=== PATIENT | male | born 1940 | race Caucasian/White ===

== ENCOUNTER → 2018-03-26 08:40 | Outpatient (REF) | payer MEDICARE, SELFPAY ==
[2018-03-26 13:07] LABS: Abs Immature Grans 0.02 k/cumm (0.0-0.09); Absolute Basophil Count 0.05 k/cumm (0.0-0.2); Absolute Eosinophil Count 0.69 k/cumm (0.0-0.7); Absolute Lymphocyte Count 1.15 k/cumm (1.2-3.4); Absolute Monocyte Count 0.37 k/cumm (0.11-0.7); Absolute Neutrophil Count 4.11 k/cumm (1.2-6.7); Basophils % 0.8; Eosinophils % 10.8; HCT 41.1 % (40.0-50.0); HGB 13.5 g/dL (13.5-17.5); Immature Grans % 0.3; Mean Corp. HGB Concentration 32.8 g/dL (32.0-36.0); Mean Corpuscular Hemoglobin 28.9 pg (27.0-33.0); Mean Platelet Volume 11.3 fL (8.0-11.0); Monocytes % 5.8; Neutrophils % 64.3; Platelet Count 224 x1000/uL (130-400); RBC 4.67 m/cumm (4.50-6.00); RBC Distribution Width 14.6 % (11.8-14.1); White Blood Cell Count 6.39 k/cumm (4.4-10.8)
[2018-03-26 13:16] LABS: Anion Gap 9.9 mmol/L (3-11); BUN 21 mg/dL (7-18); CO2 26.1 mmol/L (21.0-32.0); CREATININE 1.77 mg/dL (0.70-1.30); Calcium 9.7 mg/dL (8.5-10.1); Chloride 103 mmol/L (98-107); Estimated GFR 37.49 (mL/min/1.73m2); Glucose 87 mg/dL (70-100); Potassium 4.3 mmol/L (3.5-5.1); Sodium 139 mmol/L (136-145)
== END ==
LOC: NCHCN 08:40
PROVIDERS: PCP Nurse Practitioner; Visit Provider Nurse Practitioner
DX: C66.1 Malignant neoplasm of right ureter (principal)
CPT/HCPCS: 80048; 85025

== ENCOUNTER 2018-06-09 09:44 | Outpatient (REF) | payer MEDICARE, SELFPAY ==
[2018-06-09 12:29] LABS: HCT 42.4 % (40.0-50.0); HGB 13.8 g/dL (13.5-17.5); Mean Corp. HGB Concentration 32.5 g/dL (32.0-36.0); Mean Corpuscular Hemoglobin 28.8 pg (27.0-33.0); Mean Corpuscular Volume 88.5 fL (80-95); Mean Platelet Volume 10.9 fL (8.0-11.0); Neutrophils % 68.1; Platelet Count 245 x1000/uL (130-400); RBC 4.79 m/cumm (4.50-6.00); RBC Distribution Width 13.5 % (11.8-14.1); White Blood Cell Count 5.15 k/cumm (4.4-10.8)
[2018-06-09 12:30] LABS: Abs Immature Grans 0.01 k/cumm (0.0-0.09); Absolute Basophil Count 0.05 k/cumm (0.0-0.2); Absolute Eosinophil Count 0.33 k/cumm (0.0-0.7); Absolute Lymphocyte Count 0.91 k/cumm (1.2-3.4); Absolute Monocyte Count 0.34 k/cumm (0.11-0.7); Absolute Neutrophil Count 3.51 k/cumm (1.2-6.7); Eosinophils % 6.4; Immature Grans % 0.2; Lymphocytes % 17.7; Monocytes % 6.6
[2018-06-09 13:00] LABS: ALT 21 U/L (12-78); AST 27 U/L (15-37); Albumin 3.8 g/dL (3.4-5.0); Alkaline Phosphatase 96 U/L (46-116); BUN 21 mg/dL (7-18); Bilirubin, Total 0.6 mg/dL (0.2-1.0); CREATININE 1.75 mg/dL (0.70-1.30); Calcium 9.8 mg/dL (8.5-10.1); Chloride 103 mmol/L (98-107); Estimated GFR 37.98 (mL/min/1.73m2); Glucose 88 mg/dL (70-100); Potassium 4.6 mmol/L (3.5-5.1); Sodium 138 mmol/L (136-145); Total Protein 6.9 g/dL (6.4-8.2)
== END 2018-06-09 10:04 ==
LOC: NCHCN 09:44
PROVIDERS: PCP Nurse Practitioner; Visit Provider Nurse Practitioner
DX: N28.9 Disorder of kidney and ureter, unspecified (principal)
CPT/HCPCS: 80053; 85025

== ENCOUNTER → 2018-07-14 09:21 | Outpatient (BNVA) | payer MEDICARE, SELFPAY | PROVIDERS: PCP Nurse Practitioner; Referring Provider Nurse Practitioner; Visit Provider Surgery | DX: R10.31 Right lower quadrant pain (principal); I10 Essential (primary) hypertension | CPT/HCPCS: 99213 ==

== ENCOUNTER → 2018-07-21 13:40 | Outpatient (BNVA) | payer MEDICARE, SELFPAY | PROVIDERS: PCP Nurse Practitioner; Visit Provider Psychiatry & Neurology Neurology | DX: F44.4 Conversion disorder with motor symptom or deficit (principal); R29.898 Other symptoms and signs involving the musculoskeletal system; I10 Essential (primary) hypertension | CPT/HCPCS: 99205; 99215 ==

== ENCOUNTER 2018-07-25 00:31 | Outpatient (CLI) | payer MEDICARE, SELFPAY ==
--- NOTE | 2018-07-25 07:48 | DI.MRI_ITS ---
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 The patient appears to be status post right nephrectomy. Cysts are noted on the left kidney. The aorta is normal in diameter. There is mild disc bulging and small endplate osteophytes at L 1-2. There is no neural foraminal narrowing or central canal stenosis. At L 2-3, there is moderate loss of disc height and mild concentric bulging. There is left neural foraminal narrowing. There are mild facet degenerative changes. At L 3-4, there is marked loss disc height and circumferential disc osteophytes. There are mild facet degenerative changes. The combination of the degenerative changes causes moderate to severe bilateral neural foraminal narrowing and slight central canal stenosis. At L 4- 5, there are broad based disc osteophytes and moderate loss of disc height. There are facet degenerative changes which combine with the disc osteophytes to cause severe bilateral neural foraminal narrowing and mild central canal stenosis. At L 5-S 1, there is severe loss of disc height and small circumferential osteophytes. There are mild to moderate facet degenerative changes. There is severe bilateral neural foraminal narrowing. Schmorl's nodes are seen at multiple levels. There are degenerative signal changes in the marrow. IMPRESSION: Multi level degenerative disc changes and facet degenerative changes combining to cause neural foraminal narrowing from L 3-4 through L 5-S 1. There is mild central canal stenosis at L 3-4 and L 4-5.
== END 2018-07-25 00:51 ==
PROVIDERS: PCP Nurse Practitioner; Visit Provider Psychiatry & Neurology Neurology
DX: F44.4 Conversion disorder with motor symptom or deficit (principal); R27.8 Other lack of coordination; M51.37 Other intervertebral disc degeneration, lumbosacral region; M48.07 Spinal stenosis, lumbosacral region
CPT/HCPCS: 72148

== ENCOUNTER → 2018-08-26 13:48 | Outpatient (BNVA) | payer MEDICARE, SELFPAY | PROVIDERS: PCP Nurse Practitioner; Visit Provider Psychiatry & Neurology Neurology | DX: F44.4 Conversion disorder with motor symptom or deficit (principal); R29.898 Other symptoms and signs involving the musculoskeletal system; M48.061 Spinal stenosis, lumbar region without neurogenic claudication; I10 Essential (primary) hypertension | CPT/HCPCS: 99213 ==

== ENCOUNTER 2018-09-09 11:39 | Outpatient (CLI) | payer MEDICARE, SELFPAY ==
--- NOTE | 2018-09-09 06:00 | DI.RAD_ITS ---
SYMPTOM/DIAGNOSIS: CERVICAL RADICULOPATHY, CERVICAL EPIDURAL STEROID INJECTION C-ARM: Fluoroscopy Time: 28.9 seconds Fluoroscopy was provided for guidance with cervical spine pain clinic injection. Please see procedure note for details.
[2018-09-09 11:44] VITALS: PULSE 70; RESP 14; TEMP 36.8; O2SAT 98
--- NOTE | 2018-09-09 12:21 | PDOC.PAIN ---
Pain Clinic Procedure Note Current Active Problems Problem Status Onset Cervical radiculitis Acute Cervical Epidural Steroid Injection ALBINA LÓPEZ has been referred to the [facility] for cervical epidural steroid injection. COMMENTS: He did very well with his last ADA on 10/10/2017. He is currently in physical therapy with Joseph Goode and will go back into PT this Saturday. MARIBEL was interviewed and the medical record reviewed. There were no medical, pharmacologic, radiographic or other structural contraindications to attempting fluoroscopically guided epidural steroid injection. Risks and expected side effects as well as potential benefit of the procedure were reviewed with MARIBEL , and MARIBEL voiced concerns addressed. The printed consent form was signed and witnessed. Standard time-out procedure was performed. The patient was placed in the prone position on the fluoroscopy table and automated blood pressure cuff and pulse oximeter applied. The skin entry point for entering the epidural space by a midline C7-T1 interlaminar approach was identified under fluoroscopy and marked. Following thorough Chlorhexadine preparation of the skin and draping and 1% lidocaine infiltration of the skin entry point and subcutaneous tissues, an 18 gauge Tuohy needle was placed under fluoroscopic guidance and with loss of resistance technique into the C7-T1 epidural space. Upon needle placement and loss of resistance there were no paresthesiae or return of blood or CSF through the needle. 1 cc of Omnipaque 240 was injected with clear epidural spread in the A/P, lateral and oblique views. 15 mg of preservative free Dexomethasone was injected with no unusual discomfort expressed by MARIBEL. This was flushed with 1 cc of normal saline. The needle was removed without difficulty. MARIBEL 's vital signs were stable throughout the procedure and were as recorded in the docflowsheet by the nursing staff. Follow up plans and appointments were discussed with the MARIBEL. Post procedure instruction was given as documented in nursing documentation and having met discharge criteria, MARIBEL was discharged from the [facility]. COMMENTS: If this procedure is effective, it can be completed up to 3 times per 12 months. CC: Crista Tom
[2018-09-09] MEDS: Omnipaque 240 MG/ML 50 ML BTL IJ (12:23)
[2018-09-09] MEDS: Dexamethasone Sod. Phos./Pres-Free 10 MG/ML VIAL IJ (12:24)
[2018-09-09 12:36] VITALS: BP 132/85; PULSE 81; RESP 14; O2SAT 99
== END 2018-09-09 11:59 ==
PROVIDERS: PCP Nurse Practitioner; Visit Provider Preventive Medicine Occupational Medicine
DX: M54.12 Radiculopathy, cervical region (principal)
CPT/HCPCS: 62321; 72040; Q9967

== ENCOUNTER → 2018-10-03 08:24 | Outpatient (BNVA) | payer MEDICARE, SELFPAY | PROVIDERS: PCP Nurse Practitioner; Referring Provider Nurse Practitioner; Visit Provider Surgery | DX: K22.70 Barrett's esophagus without dysplasia (principal); I10 Essential (primary) hypertension; Z90.5 Acquired absence of kidney | CPT/HCPCS: 99213 ==

== ENCOUNTER 2018-11-12 06:12 | Day surgery (SDC) | payer MEDICARE, SELFPAY ==
[2018-11-12 06:20] VITALS: BP 146/94; PULSE 70; RESP 18; TEMP 35.5
--- NOTE | 2018-11-12 06:24 | W.PM.HP.N ---
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 Complications include but are not limited to bleeding, pain, perforation, sore throat, aspiration, and adverse reaction to the medications. Questions were entertained and answered to their satisfaction and they wished to proceed. No guarantees were given or implied. 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 Estevez is here today to discuss an EGD. The patient has a history of De Los Santos's and feels like he is having to clear his throat more often. It has been going on for 1 year. Sometimes spits up clear/white phlegm. The patient denies any hematemesis, unintentional weight loss or changes in bowel habits. The patient complains of dysphagia, dyspepsia and bloating. He underwent a nephrectomy last summer for malignancy. He wondered about having another colonoscopy. His last colonoscopy was in 2015. He had a tubular adenoma. He isn't due until 2020. He has had no changes in bowel habits or hematochezia. There is no family history of colon cancer. The patient denies any chest pain or shortness of breath with exertion. No changes in his health since he was seen in the office in September Review of Systems Cardiovascular Denies chest pain, Denies chest pain at rest, Denies chest pain with activity, Denies palpitations, Denies dyspnea and Denies dyspnea on exertion Respiratory Denies dyspnea and Denies dyspnea on exertion Endocrine Denies palpitations [facility] Medical History Essential hypertension (Chronic) Hyperlipidemia (Chronic) FADI (obstructive sleep apnea) (Chronic) De Los Santos's esophagus (Chronic) GERD (gastroesophageal reflux disease) (Chronic) Tubular adenoma of colon (Acute 06/12/16) Sensorineural hearing loss, bilateral (Acute 02/11/14) Primary malignant neoplasm of prostate (Acute) Malignant neoplasm of skin (Acute 07/11/93) Hiatal hernia (Acute) Gastric motor function disorder (Acute) Cataract (Acute) 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) Right inguinal hernia (Inactive) Right groin pain (Acute) History of colon polyps (Chronic) Hypertension (Chronic) Kidney malignancy (Chronic) Renal insufficiency (Chronic) Stroke (Chronic) Surgical History History of kidney removal (Resolved) Prostatectomy (~1995) EGD & Colonoscopy (06/12/16) Colonoscopy - MAC (04/21/13) Hx of cystoscopy (Acute) S/P T&A (status post tonsillectomy and adenoidectomy) (Resolved) Nasal septoplasty (~2001) Family History Mother Heart disease Father Personal history of malignant neoplasm Heart disease Leukemia Prostate CA Brother Personal history of malignant neoplasm Grandfather Stroke Grandmother Stroke Brother Personal history of malignant neoplasm Social History Smoking/Tobacco Use Status: Never Alcohol Intake: current Alcohol Intake frequency: a few times a week Alcohol type: beer and wine Drug use: Never Substance use type: does not use Household members: spouse Number of Children: 4 Do you feel safe at home: Yes Do you feel safe in your relationship?: Yes Additional Social history: with memory issues. Meds Home Medications Medication Instructions Recorded Confirmed Type Prilosec OTC 20 mg PO DAILY tab 01/27/13 11/07/18 History cholecalciferol (vitamin D3) 1,000 unit PO DAILY 01/27/13 11/07/18 History aspirin [Aspir-Low] 81 mg PO DAILY #12 tab-cap 02/16/14 11/07/18 History atorvastatin [Lipitor] 40 mg PO HS #90 tab-cap 05/24/17 11/07/18 Rx losartan 100 mg PO DAILY #90 tab-cap 05/24/17 11/07/18 Rx aesdbxgv-vas-wtkgt acid 300 1 tab PO DAILY 07/14/18 11/07/18 History mcg-lycopene 600 mcg-lutein 300 mcg tablet Allergies Allergy/AdvReac Type Severity Reaction Status Date / Time oxycodone HCl [From Percocet] AdvReac Intermediate dizziness Verified 11/12/18 06:31 baclofen AdvReac altered Verified 11/12/18 06:31 mental status lisinopril AdvReac Verified 11/12/18 06:31 Exam Resp Effort & Inspection: abnormal respiratory effort Auscultation: not clear to auscultation bilaterally Cardio Rate: abnormal rate Rhythm: abnormal rhythm Heart Sounds: no click, no gallops and no murmurs
--- NOTE | 2018-11-12 06:35 | W.PM.ENDDOP ---
Date of service: 11/12/18 Time of Service: :31 Endoscopy Report DATE OF PROCEDURE: 11/12/18 PRE-OP DIAGNOSIS: Hx of De Los Santos's, throat clearing POST-OP DIAGNOSIS: same (Hiatal hernia, gastric polyps) PROCEDURE: EGD with biopsies SURGEON: Shayna Fontenot ANESTHESIA: other (General/ ASA 2/ Isela Tejada, JADON) ESTIMATED BLOOD LOSS: 3 PATHOLOGY: other COMPLICATIONS: None DISPOSITION: same day INDICATIONS: Mr. Estevez is a pleasant 78 year old male who was seen in the office for repeat EGD. He has a history of De Los Santos's. He has been having some dyspepsia and dysphagia as well. Risks, benefits and complications have been reviewed. Complications include but are not limited to bleeding, pain, perforation, sore throat, aspiration, and adverse reaction to the medications. Questions were entertained and answered to their satisfaction and they wished to proceed. No guarantees were given or implied. PROCEDURE START TIME: :31 PROCEDURE END TIME: :39 FINDINGS: 1. Mild esophagitis 2. Small Hiatal hernia 3. Gastric polyps PROCEDURE DESCRIPTION: After informed consent was obtained the patient was take to the procedure room and placed in a supine position. Monitors were applied and a time out was done. The patients name, date of , procedure type, allergies to medications and metal in their body was reviewed. A bite block was placed and the patient was sedated. Once sedated and comfortable the gastroscope was advanced through the oropharynx which was grossly normal into the esophagus. The proximal and mid-esophagus were normal. In the distal esophagus there was mild inflammation noted. A small sliding hernia was noted. The scope was advanced into the stomach and through the pylorus into the 3rd portion of the duodenum. The duodenum was noted to be normal. No biopsies were done. The scope was retracted back into the stomach and multiple polyps were identified. 3 more vascular appearing polyps were removed and sent for pathology. There were no ulcers. The scope was retro-flexed. The cardia and fundus were noted to be normal. There was a small sliding hiatal hernia noted. The scope was retracted back into the esophagus and biopsies were done of the GE junction for surveillance of his De Los Santos's. The Z line was irregular. The GE junction was at 32 cm. The scope was removed and the patient was woken up and taken back to [facility] in stable condition. Follow up: 2-3 weeks with his PCP. I don't think that his throat clearing is due to reflux. Would recommend an ENT referral. May need manometry studies if ENT work-up is normal. Follow up for EGD in 2-3 years. Will most likely schedule another EGD at the time of his next Colonoscopy.
--- NOTE | 2018-11-12 06:38 | ENDO_ITS ---
Date of service: 11/12/18 Time of Service: :31 Endoscopy Report DATE OF PROCEDURE: 11/12/18 PRE-OP DIAGNOSIS: Hx of De Los Santos's, throat clearing POST-OP DIAGNOSIS: same (Hiatal hernia, gastric polyps) PROCEDURE: EGD with biopsies SURGEON: Shayna Fontenot ANESTHESIA: other (General/ ASA 2/ Isela Tejada, JADON) ESTIMATED BLOOD LOSS: 3 PATHOLOGY: other COMPLICATIONS: None DISPOSITION: same day INDICATIONS: Mr. Estevez is a pleasant 78 year old male who was seen in the office for repeat EGD. He has a history of De Los Santos's. He has been having some dyspepsia and dysphagia as well. Risks, benefits and complications have been reviewed. Complications include but are not limited to bleeding, pain, perforation, sore throat, aspiration, and adverse reaction to the medications. Questions were entertained and answered to their satisfaction and they wished to proceed. No guarantees were given or implied. PROCEDURE START TIME: :31 PROCEDURE END TIME: :39 FINDINGS: 1. Mild esophagitis 2. Small Hiatal hernia 3. Gastric polyps PROCEDURE DESCRIPTION: After informed consent was obtained the patient was take to the procedure room and placed in a supine position. Monitors were applied and a time out was done. The patients name, date of , procedure type, allergies to medications and metal in their body was reviewed. A bite block was placed and the patient was sedated. Once sedated and comfortable the gastroscope was advanced through the oropharynx which was grossly normal into the esophagus. The proximal and mid- esophagus were normal. In the distal esophagus there was mild inflammation noted. A small sliding hernia was noted. The scope was advanced into the stomach and through the pylorus into the 3rd portion of the duodenum. The duodenum was noted to be normal. No biopsies were done. The scope was retracted back into the stomach and multiple polyps were identified. 3 more vascular appearing polyps were removed and sent for pathology. There were no ulcers. The scope was retro-flexed. The cardia and fundus were noted to be normal. There was a small sliding hiatal hernia noted. The scope was retracted back into the esophagus and biopsies were done of the GE junction for surveillance of his De Los Santos's. The Z line was irregular. The GE junction was at 32 cm. The scope was removed and the patient was woken up and taken back to [facility] in stable condition. Follow up: 2-3 weeks with his PCP. I don't think that his throat clearing is due to reflux. Would recommend an ENT referral. May need manometry studies if ENT work-up is normal. Follow up for EGD in 2-3 years. Will most likely schedule another EGD at the time of his next Colonoscopy.
--- NOTE | 2018-11-12 06:40 | W.PM.DSUDISC ---
Discharge Plan Disposition Patient Disposition: HOME Condition: Good Discharge Details Reason For Visit: Hx of De Los Santos's, dyspepsia and dysphagia Attending Provider: Shayna Fontenot Primary Care Provider: Crista Tom Home Meds and New Rx's Prescriptions: Continued Centrum Silver Men 300-600-300 mcg tablet 1 tab PO DAILY RF: 0 cholecalciferol (vitamin D3) 1,000 UNIT capsule 1,000 unit PO DAILY RF: 0 Prilosec OTC 20 MG tablet,delayed release (DR/EC) 20 mg PO DAILY RF: 0 aspirin [Aspir-Low] 81 MG tablet,delayed release (DR/EC) 81 mg PO DAILY Qty: 12 RF: 0 atorvastatin [Lipitor] 40 MG tablet 40 mg PO HS Qty: 90 RF: 4 losartan 100 MG tablet 100 mg PO DAILY Qty: 90 RF: 3 Discharge Instructions Instructions: Upper Endoscopy (DC), Gastric Polyps (DC) Additional Instructions: Findings: mild inflammation of the esophagus gastric polyps Follow up:2-3 weeks with your PCP Please call if you develop: fevers >101.5 Nausea or Vomiting Abdominal pain that is not transient DAY SURGERY UNIT POST COLONOSCOPY INSTRUCTIONS 1. Because there will be medication in your system for the next 24 hours, you may feel a little sleepy. Your coordination will be affected. Therefore: a. Do not drive or operate dangerous equipment for 24 hours. b. Do not drink alcohol beverages for 24 hours (not even beer). c. Plan to go home and rest for the day. 2. Generally there are no restrictions on your activity after a day or so has gone by, but you may feel a bit fatigued for a few days. 3 After you arrive home you may have a light meal and return to a normal diet as you can tolerate it without feeling sick to your stomach. 4. After surgery, you may feel pain or discomfort. This should be only transient, but if it persists please contact your doctor. 5. If there are any questions regarding the findings of your procedure, please feel free to contact your doctor. 6. If you are unable to contact your doctor with a problem, contact the hospital at [phone]. 7. Continue all your regular medications unless directed otherwise. I understand the above instructions and have no questions. Signature of Patient or Responsible Adult Escort Date/Time Name of Responsible Adult Escort Signature of Nurse Date/Time Referrals: Crista Tom [Primary Care Provider] - (2-3 weeks) Activity:: Activity as Tolerated Diet:: As Tolerated Discharge Orders Discharge Orders: Discharge Order (Routine); Ordered 11/12/18 Ordered By: Shayna Fontenot DS: Diagnosis Discharge Diagnosis (1) De Los Santos's esophagus: Status: Chronic (2) H/O esophagogastroduodenoscopy: Status: Chronic
[2018-11-12] MEDS: Lactated Ringers 1,000 ML 80 ML IV (06:59)
--- NOTE | 2018-11-12 07:34 | STOM_PTH ---
PATIENT: Greg Estevez Jr LOC: [facility] U#:[id number] AGE/SX: 78/M ROOM: RE11/12/[address]: Shayna Fontenot MD : [id number] BED: DIS: 11/12/2018 SPEC #: [id number] RECD: 11/12/18 12:51 STATUS: [place] RE #: [id number] MARCELINA: 11/12/18 07:[address]: Shayna Fontenot DEPT: Surgical Specimen RECD BY: Reba Lopez ENTERED: 11/12/18 12:53 SP TYPE: STOMACH OTHR DR: Crista Tom Tissues: 1 - STOMACH BIOPSY 2 - ESOPHAGUS BIOPSY 3 - ESOPHAGUS BIOPSY Procedures: GROSS AND MICRO LEVEL 4 Comments: [id number]
[2018-11-12 08:46] VITALS: BP 140/93; PULSE 59; RESP 18; TEMP 35.7; O2SAT 99
== END 2018-11-12 08:40 | disposition home or self-care (01) ==
PROVIDERS: PCP Nurse Practitioner; Visit Provider Surgery
PROC: 0DJ68ZZ Inspection of Stomach, Via Natural or Artificial Opening Endoscopic (ICD-10-PCS; CPT 43235; principal; 2018-11-12 07:30)
DX: R10.13 Epigastric pain (principal); K22.70 Barrett's esophagus without dysplasia; K21.0 Gastro-esophageal reflux disease with esophagitis; K31.7 Polyp of stomach and duodenum; K44.9 Diaphragmatic hernia without obstruction or gangrene; I10 Essential (primary) hypertension; G47.33 Obstructive sleep apnea (adult) (pediatric)
CPT/HCPCS: 43239; 88305; NC

== ENCOUNTER → 2019-03-27 07:32 | Outpatient (BNVA) | payer MEDICARE, SELFPAY | PROVIDERS: PCP Nurse Practitioner; Referring Provider Nurse Practitioner; Visit Provider Surgery | DX: K22.70 Barrett's esophagus without dysplasia (principal); I10 Essential (primary) hypertension | CPT/HCPCS: 99212; 99213 ==

== ENCOUNTER 2019-06-08 17:42 | Outpatient (CLI) | payer MEDICARE, SELFPAY ==
--- NOTE | 2019-06-08 16:30 | DI.RAD_ITS ---
EXAM: XR LUMBAR SPINE COMPLETE INDICATION: ACUTE LOW BACK PAIN, M54.5. COMPARISON: No exams were available for comparison TECHNIQUE: 2D digital imaging was performed. FINDINGS: There are 5 lumbar type vertebral bodies. There is no evidence of spondylolysis or spondylolisthesis . There is disc space narrowing at L2-3 through L5-S1. There are osteophytes seen at the endplates throughout the lumbar spine. There are degenerative changes of the facets throughout the lumbar spin e. No acute fracture or subluxation is present. There is atherosclerosis present. Surgical clips a re seen in the pelvis. IMPRESSION: Moderately severe degenerative changes in the lumbar spine.
== END 2019-06-08 18:02 ==
PROVIDERS: PCP Nurse Practitioner; Visit Provider Nurse Practitioner
DX: M54.5 Low back pain (principal); M51.37 Other intervertebral disc degeneration, lumbosacral region
CPT/HCPCS: 72110

== ENCOUNTER 2019-08-24 08:17 | Outpatient (REF) | payer MEDICARE, SELFPAY ==
[2019-08-24 12:07] LABS: ALT 20 U/L (16-63); AST 16 U/L (15-37); Albumin 3.4 g/dL (3.4-5.0); Alkaline Phosphatase 111 U/L (46-116); Anion Gap 7.6 mmol/L (3-11); BUN 22 mg/dL (7-18); Bilirubin, Total 0.7 mg/dL (0.2-1.0); CO2 28.4 mmol/L (21.0-32.0); CREATININE 1.62 mg/dL (0.70-1.30); Calcium 9.7 mg/dL (8.5-10.1); Calculated LDL 66 mg/dL; Chloride 106 mmol/L (98-107); Cholesterol 118 mg/dL (<200); Estimated GFR 41.42 (mL/min/1.73m2); Glucose 93 mg/dL (74-106); HDL Cholesterol 33 mg/dL (40-60); Potassium 4.6 mmol/L (3.5-5.1); Sodium 142 mmol/L (136-145); Total Protein 6.6 g/dL (6.4-8.2); Triglyceride 99 mg/dL (<150)
== END 2019-08-24 08:37 ==
LOC: NCHCN 08:17
PROVIDERS: PCP Nurse Practitioner; Visit Provider Nurse Practitioner
DX: E78.5 Hyperlipidemia, unspecified (principal); I10 Essential (primary) hypertension
CPT/HCPCS: 80053; 80061

== ENCOUNTER 2019-08-24 09:10 | Outpatient (CLI) | payer MEDICARE, SELFPAY ==
--- NOTE | 2019-08-24 08:40 | DI.RAD_ITS ---
EXAM: XR CERVICAL SPINE COMP 4-5V INDICATION: NECK PAIN, M54.2. COMPARISON: CERVICAL SP. LIMITED (TRAUMA) from 09/10/2012 TECHNIQUE: 2D digital imaging was performed. FINDINGS: The odontoid is intact. The lateral masses are well aligned. No acute fractures or subluxations are seen. Moderate degenerative changes are present throughout the cervical spine. The findings are mo st marked from C4 through C7. Mild to moderate narrowing of the neural foramen is seen on the right at C3-4, C4-C5 and C6-C7. There is moderate narrowing of the neural foramen on the left at C3-4 and C6-C7. The prevertebral soft tissues are unremarkable. IMPRESSION: Moderately severe degenerative changes in the cervical spine.
== END 2019-08-24 09:30 ==
PROVIDERS: PCP Nurse Practitioner; Visit Provider Nurse Practitioner
DX: M54.2 Cervicalgia (principal); M47.812 Spondylosis without myelopathy or radiculopathy, cervical region
CPT/HCPCS: 72050

== ENCOUNTER 2019-12-09 15:41 | Outpatient (REF) | payer MEDICARE, SELFPAY ==
[2019-12-09 19:42] LABS: HCT 45.1 % (40.0-50.0); Mean Corp. HGB Concentration 33.3 g/dL (32.0-36.0); Mean Corpuscular Hemoglobin 29.5 pg (27.0-33.0); Mean Corpuscular Volume 88.8 fL (80-95); Mean Platelet Volume 10.5 fL (8.0-11.0); Platelet Count 304 x1000/uL (130-400); RBC 5.08 m/cumm (4.50-6.00); RBC Distribution Width 13.1 % (11.8-14.1); White Blood Cell Count 9.56 k/cumm (4.4-10.8)
[2019-12-09 19:47] LABS: Anion Gap 7.5 mmol/L (3-11); BUN 17 mg/dL (7-18); CO2 26.5 mmol/L (21.0-32.0); CREATININE 1.87 mg/dL (0.70-1.30); Calcium 10.1 mg/dL (8.5-10.1); Chloride 103 mmol/L (98-107); Estimated GFR 35.09 (mL/min/1.73m2); Glucose 103 mg/dL (74-106); Magnesium 1.8 mg/dL (1.8-2.4); Potassium 4.3 mmol/L (3.5-5.1); Sodium 137 mmol/L (136-145)
== END 2019-12-09 16:01 ==
LOC: NCHCN 15:41
PROVIDERS: PCP Nurse Practitioner; Visit Provider Family Medicine
DX: R55 Syncope and collapse (principal); N28.9 Disorder of kidney and ureter, unspecified
CPT/HCPCS: 80048; 85027; 83735

== ENCOUNTER 2019-12-11 12:15 | Outpatient (REF) | payer MEDICARE, SELFPAY ==
[2019-12-11 12:25] LABS: Estimated GFR 39.18 (mL/min/1.73m2)
== END 2019-12-11 12:35 ==
LOC: NCHCN 12:15
PROVIDERS: PCP Nurse Practitioner; Visit Provider Nurse Practitioner
DX: I10 Essential (primary) hypertension (principal)
CPT/HCPCS: 82565

== ENCOUNTER 2019-12-11 13:57 | Outpatient (CLI) | payer MEDICARE, SELFPAY ==
--- NOTE | 2019-12-11 13:20 | DI.CT_ITS ---
EXAM: CT ABDOMEN PELVIS WO/W CLINICAL HISTORY: SYNCOPE,R55, PROGRESSIVE RT FLANK PAIN, H/O NEPHRECTOMY, STAGE III CKD TECHNIQUE: 2D digital imaging was performed. COMPARISON: ABD/PELVIS WO W CONTRAST from 01/09/2018 FINDINGS: The lung bases are clear. The patient is status post right nephrectomy. In the right renal bed, the re is an ill-defined mass with a necrotic center measuring 5.6 cm in diameter. It appears to have a necrotic center. An additional ill-defined mass is seen more inferiorly in the right side of the pel vis adjacent to the right iliac artery. An additional mass is seen slightly more inferiorly at the le sanjay of the acetabulum. There is some bladder wall thickening but no evidence of a bladder mass. The patient appears to be status post prostatectomy. Left kidney shows several cysts. There is no evide nce of hydronephrosis or mass. There are stable liver cysts. The spleen, pancreas, gallbladder and left adrenal are unremarkable. There is some haziness around the right adrenal gland. It is in clos e proximity to the mass. The bowel is unremarkable. There are diverticula in the sigmoid region. T here are advanced degenerative changes in the spine. No definite bony metastatic lesions are seen. Multiple surgical clips in the low pelvis. IMPRESSION: Findings consistent with recurrence masses in the right renal bed and 2 additional masses in the pe lvis, along the course of the ureter. CONTRAST MATERIAL: Intravenous: Omnipaque 350 Contrast volume:50 ml Contrast route:IV - RADIATION DOSE DELIVERED: Total DLP
[2019-12-11] MEDS: Omnipaque 350 MG/ML 100 ML BTL IJ (13:28)
[2019-12-11] MEDS: Normal Saline - Diluent 50 ML VIAL IV (13:30)
== END 2019-12-11 14:17 ==
PROVIDERS: PCP Nurse Practitioner; Visit Provider Family Medicine
DX: R10.31 Right lower quadrant pain (principal); N18.3 Chronic kidney disease, stage 3 (moderate); N28.1 Cyst of kidney, acquired; N28.89 Other specified disorders of kidney and ureter; R55 Syncope and collapse; Z90.5 Acquired absence of kidney
CPT/HCPCS: 74178; J3490

== ENCOUNTER 2019-12-14 01:02 | Outpatient (CLI) | payer MEDICARE, SELFPAY ==
[2019-12-14] MEDS: Normal Saline Flush 10 ML SYR IVP (15:20)
[2019-12-14] MEDS: Gadoterate meglumine 20 ML VIAL 8 ML IVP (15:22)
--- NOTE | 2019-12-14 16:01 | DI.MRI_ITS ---
EXAM: MR BRAIN WO/W CLINICAL HISTORY: SYNCOPE, R55,H/O PROSTATE AND UROTHELIAL CA, REMOTE CVA, assess for mass or mets TECHNIQUE: Multiplanar multisequence MRI of the brain was performed. CONTRAST MATERIAL: IV Contrast: 8 ML of Dotarem contrast administered. COMPARISON: No exams were available for comparison FINDINGS: VENTRICLES AND EXTRA AXIAL SPACES: Moderately dilated consistent with the degree of atrophy. HEMORRHAGE: None. CEREBRAL PARENCHYMA: Moderate to severe atrophy. Prominent high signal in the periventricular white matter consistent with severe microvascular changes. There are prominent perivascular spaces. No fo cus of restricted diffusion to suggest acute infarct. No space-occupying lesion identified. MIDLINE SHIFT: None. BRAINSTEM/CEREBELLUM: Mildly increased signal in the brainstem consistent with sequela small vessel d isease. L. Vascular flow voids are intact. ENHANCEMENT: No suspicious enhancement identified. VISUALIZED PARANASAL SINUSES/MASTOIDS: Retention cyst at the floor of the right maxillary sinus. IMPRESSION: No evidence of metastatic disease. Atrophy and white matter changes likely reflecting small vessel d isease. DATA REPOSITORY:
== END 2019-12-14 01:22 ==
PROVIDERS: PCP Nurse Practitioner; Visit Provider Family Medicine
DX: R55 Syncope and collapse (principal); Z85.54 Personal history of malignant neoplasm of ureter; Z85.46 Personal history of malignant neoplasm of prostate; R90.82 White matter disease, unspecified; Z86.73 Personal history of transient ischemic attack (TIA), and cerebral infarction without residual deficits
CPT/HCPCS: 70553

== ENCOUNTER 2020-01-26 01:28 | Outpatient (CLI) | payer MEDICARE, SELFPAY ==
[2020-01-26 08:19] LABS: Abs Immature Grans 0.01 k/cumm (0.0-0.09); Absolute Basophil Count 0.04 k/cumm (0.0-0.2); Absolute Eosinophil Count 0.31 k/cumm (0.0-0.7); Absolute Lymphocyte Count 1.09 k/cumm (1.2-3.4); Absolute Monocyte Count 0.55 k/cumm (0.11-0.7); Absolute Neutrophil Count 4.94 k/cumm (1.2-6.7); Basophils % 0.6; Eosinophils % 4.5; HCT 45.9 % (40.0-50.0); HGB 15.1 g/dL (13.5-17.5); Immature Grans % 0.1 %; Lymphocytes % 15.7; Mean Corp. HGB Concentration 32.9 g/dL (32.0-36.0); Mean Corpuscular Hemoglobin 29.4 pg (27.0-33.0); Mean Corpuscular Volume 89.3 fL (80-95); Mean Platelet Volume 9.7 fL (8.0-11.0); Monocytes % 7.9; Neutrophils % 71.2; Platelet Count 288 x1000/uL (130-400); RBC 5.14 m/cumm (4.50-6.00); RBC Distribution Width 13.8 % (11.8-14.1); White Blood Cell Count 6.94 k/cumm (4.4-10.8)
[2020-01-26 08:46] LABS: ALT 20 U/L (16-63); AST 18 U/L (15-37); Albumin 3.7 g/dL (3.4-5.0); Alkaline Phosphatase 143 U/L (46-116); Anion Gap 9.5 mmol/L (3-11); BUN 20 mg/dL (7-18); Bilirubin, Total 0.4 mg/dL (0.2-1.0); CO2 26.5 mmol/L (21.0-32.0); CREATININE 1.58 mg/dL (0.70-1.30); Calcium 9.6 mg/dL (8.5-10.1); Chloride 101 mmol/L (98-107); Estimated GFR 42.63 (mL/min/1.73m2); Glucose 89 mg/dL (74-106); Potassium 4.4 mmol/L (3.5-5.1); Sodium 137 mmol/L (136-145); Total Protein 7.4 g/dL (6.4-8.2)
== END 2020-01-26 01:48 ==
PROVIDERS: PCP Nurse Practitioner; Visit Provider Internal Medicine
DX: C79.10 Secondary malignant neoplasm of unspecified urinary organs (principal)
CPT/HCPCS: 36415; 80053; 85025

== ENCOUNTER 2020-02-02 00:51 | Outpatient (RCR) | payer MEDICARE, SELFPAY ==
[2020-02-02] MEDS: Normal Saline Flush 10 ML SYR IVP (08:43)
[2020-02-02 08:57] LABS: Abs Immature Grans 0.02 k/cumm (0.0-0.09); Absolute Basophil Count 0.01 k/cumm (0.0-0.2); Absolute Eosinophil Count 0.03 k/cumm (0.0-0.7); Absolute Lymphocyte Count 0.86 k/cumm (1.2-3.4); Absolute Monocyte Count 0.07 k/cumm (0.11-0.7); Basophils % 0.2; Eosinophils % 0.7; HCT 42.5 % (40.0-50.0); HGB 13.9 g/dL (13.5-17.5); Immature Grans % 0.5 %; Lymphocytes % 21.1; Mean Corp. HGB Concentration 32.7 g/dL (32.0-36.0); Mean Corpuscular Hemoglobin 29.8 pg (27.0-33.0); Mean Platelet Volume 9.8 fL (8.0-11.0); Monocytes % 1.7; Neutrophils % 75.8; Platelet Count 184 x1000/uL (130-400); RBC 4.67 m/cumm (4.50-6.00); RBC Distribution Width 13.5 % (11.8-14.1); White Blood Cell Count 4.07 k/cumm (4.4-10.8)
[2020-02-02 08:58] LABS: Absolute Neutrophil Count 3.09 k/cumm (1.2-6.7)
[2020-02-02 09:15] LABS: ALT 34 U/L (16-63); AST 31 U/L (15-37); Albumin 3.2 g/dL (3.4-5.0); Alkaline Phosphatase 129 U/L (46-116); Anion Gap 10.4 mmol/L (3-11); BUN 26 mg/dL (7-18); Bilirubin, Total 0.7 mg/dL (0.2-1.0); CO2 24.6 mmol/L (21.0-32.0); CREATININE 1.65 mg/dL (0.70-1.30); Calcium 9.8 mg/dL (8.5-10.1); Chloride 103 mmol/L (98-107); Estimated GFR 40.55 (mL/min/1.73m2); Glucose 121 mg/dL (74-106); Magnesium 1.9 mg/dL (1.8-2.4); Potassium 4.2 mmol/L (3.5-5.1); Sodium 138 mmol/L (136-145); Total Protein 7.5 g/dL (6.4-8.2)
== END 2020-02-09 23:59 | disposition home or self-care (01) ==
LOC: INF 00:51
PROVIDERS: Nurse Practitioner Adult Health; PCP Nurse Practitioner; Visit Provider Internal Medicine
DX: Z45.2 Encounter for adjustment and management of vascular access device (principal); C79.10 Secondary malignant neoplasm of unspecified urinary organs
CPT/HCPCS: 36591; 80053; 83735; 85025

== ENCOUNTER 2020-02-02 12:08 | Emergency (ER) | payer MEDICARE, SELFPAY ==
[2020-02-02] VITALS (35 sets, daily range): BP systolic 139–177; BP diastolic 82–113; PULSE 79–114; RESP 12–26; TEMP 36.9; O2SAT 95–98
--- NOTE | 2020-02-02 12:45 | DI.RAD_ITS ---
EXAM: XR CHEST 2V PA LATERAL CLINICAL HISTORY: Rigors after chemo infusion TECHNIQUE: COMPARISON: CR RIGHT SHOULDER COMPLETE from 04/26/2017 FINDINGS: Note is made of Port-A-Cath in position via right subclavian route. Heart is not enlarged. The lung s are clear and normally expanded. No pleural effusion seen. IMPRESSION: No evidence of acute process.
[2020-02-02 13:39] LABS: Abs Immature Grans 0.02 k/cumm (0.0-0.09); Absolute Basophil Count 0.02 k/cumm (0.0-0.2); Absolute Eosinophil Count 0.03 k/cumm (0.0-0.7); Absolute Lymphocyte Count 0.76 k/cumm (1.2-3.4); Absolute Neutrophil Count 3.22 k/cumm (1.2-6.7); Basophils % 0.5; Eosinophils % 0.7; HCT 42.4 % (40.0-50.0); HGB 13.5 g/dL (13.5-17.5); Immature Grans % 0.5 %; Lymphocytes % 18.3; Mean Corp. HGB Concentration 31.8 g/dL (32.0-36.0); Mean Corpuscular Volume 91.2 fL (80-95); Mean Platelet Volume 10.3 fL (8.0-11.0); Monocytes % 2.4; Neutrophils % 77.6; Platelet Count 112 x1000/uL (130-400); RBC 4.65 m/cumm (4.50-6.00); RBC Distribution Width 13.5 % (11.8-14.1); White Blood Cell Count 4.15 k/cumm (4.4-10.8)
[2020-02-02 13:40] LABS: Lactate 1.1 mmol/L (0.6-1.4)
[2020-02-02] MEDS: Normal Saline 1,000 ML 1000 ML IV ×2 (13:46→14:43)
[2020-02-02] MEDS: Normal Saline-STERILE FIELD 0.9% 10 ML SYR (13:47)
[2020-02-02 14:00] LABS: Bilirubin Negative (Negative); Blood Small (Negative); Clarity Clear (Clear); Glucose Negative (Negative); Ketones Negative (Negative); Leukocyte Esterase Negative (Negative); Nitrite Negative (Negative); Specific Gravity 1.025 (1.005-1.025); Urobilinogen 0.2 EU/dL (Up TO 0.2); pH 5.5 (5-8)
[2020-02-02 14:03] LABS: C-Reactive Protein 7.93 mg/dL (0.0-0.3)
[2020-02-02 14:15] LABS: Prothrombin Time 10.3 sec (9.3-11.0)
[2020-02-02 14:25] LABS: Bacteria Rare HPF (Negative); Crystals Negative HPF (Negative); Epithelial Cells Rare HPF (Negative); Mucus Negative (Negative); RBC 0-2 HPF (0-2); WBC 0-2 HPF (0-5)
[2020-02-02 14:26] LABS: C & S Indicated? No
[2020-02-02] MEDS: POTASSIUM CHLORIDE 10 MEQ/100 ML BAG 100 MEQ IVPB (14:31)
[2020-02-02] MEDS: Potassium Chloride 20 MEQ TABCR 40 MEQ PO (14:32)
[2020-02-02 14:34] LABS: ESR 47 mm/hr (1-20)
[2020-02-02 15:12] LABS: Abs Immature Grans 0.02 k/cumm (0.0-0.09); Absolute Basophil Count 0.01 k/cumm (0.0-0.2); Absolute Eosinophil Count 0.01 k/cumm (0.0-0.7); Absolute Lymphocyte Count 0.55 k/cumm (1.2-3.4); Absolute Monocyte Count 0.06 k/cumm (0.11-0.7); Absolute Neutrophil Count 3.46 k/cumm (1.2-6.7); Basophils % 0.2; Eosinophils % 0.2; HCT 36.9 % (40.0-50.0); Immature Grans % 0.5 %; Lymphocytes % 13.4; Mean Corp. HGB Concentration 32.5 g/dL (32.0-36.0); Mean Corpuscular Hemoglobin 29.6 pg (27.0-33.0); Mean Corpuscular Volume 90.9 fL (80-95); Mean Platelet Volume 9.4 fL (8.0-11.0); Monocytes % 1.5; Neutrophils % 84.2; Platelet Count 134 x1000/uL (130-400); RBC 4.06 m/cumm (4.50-6.00); RBC Distribution Width 13.4 % (11.8-14.1); White Blood Cell Count 4.11 k/cumm (4.4-10.8)
--- NOTE | 2020-02-02 15:24 | W.ED.GENAD ---
Discharge Plan Disposition Patient Disposition: HOME Condition: Stable Discharge Details Chief Complaint: GenMedical Clinical Impression: Episode of shaking Primary Care Provider: Crista Tom ED Provider: Zac Dowd Home Meds and New Rx's Prescriptions: Continued Centrum Silver Men 300-600-300 mcg tablet 1 tab PO DAILY RF: 0 cholecalciferol (vitamin D3) 1,000 UNIT capsule 1,000 unit PO DAILY RF: 0 omeprazole magnesium [Prilosec OTC] 20 MG tablet,delayed release (DR/EC) 20 mg PO DAILY RF: 0 aspirin [Aspir-Low] 81 MG tablet,delayed release (DR/EC) 81 mg PO DAILY Qty: 12 RF: 0 atorvastatin [Lipitor] 40 MG tablet 40 mg PO HS Qty: 90 RF: 4 losartan 100 MG tablet 100 mg PO DAILY Qty: 90 RF: 3 Discharge Instructions Additional Instructions: At this time you are feeling much improved and your laboratory values do not reveal any obvious emergent process. Please watch for new or worsening symptoms, especially signs of infection, and return immediately to the ER. I did speak with your oncology team, Dr. Navarrete, he is aware of your ER visit and discharged from the ER. He will be happy to follow you as an outpatient. Please contact his office tomorrow for prompt outpatient reevaluation. Discharge Data Discharge Date/Time-TO BE ENTERED AT DEPARTURE: 02/02/20 16:10 Medical Decision Making 79-year-old gentleman with history of hypertension, GERD, tubular adenoma of the colon, primary malignant neoplasm of the prostate, prostatectomy, right nephrectomy, presents after potential rigors around 1130 this morning while receiving his chemotherapy infusion. Sent to the ER for infectious work-up. Patient currently denies any pain whatsoever and reports that the shaking is nearly completely resolved. He denies recent illness or trauma, no obvious infectious source. He does have a mild baseline tremor however otherwise examination is unremarkable. Patient presents actually slightly hypertensive as opposed to hypotensive, pulse in the 80s, O2 sat 97% on room air and he is currently afebrile. Patient appears well, nontoxic. I did not see him shaking, difficult to know if they truly look like rigors. Patient is agreeable to having a septic work-up obtained. IV established, blood cultures pending, 1 L normal saline IV given. Initial laboratory values reveal hypokalemia and hypercalcemia. Given this, was going to initiate replenishment with p.o. and IV potassium, obtain EKG, reassess. EKG does not reveal any obvious electrolyte abnormality-emergency. Patient was also going to receive a second liter of IV fluid. Patient received his oral potassium, IV was beginning to infuse and was brought to my attention by the lab that the draw may be fairly inaccurate as it was drawn from the port line as opposed to peripherally and may have not been drawn properly. IV infusion of the rest of the saline and potassium discontinued for the time being and labs were redrawn. Upon redraw the potassium and calcium were appropriate. White blood cell count 4.11 hemoglobin 12 hematocrit 36.9 ESR 47, potassium 4.8, creatinine 1.28, GFR estimated 54.35, lactate 1.1, calcium 8.6. CRP 12.5. Urinalysis negative for leuk esterase, 0-2 white blood cells and red blood cells. Rare bacteria, culture not indicated. Question if inflammatory markers could be response to chemotherapy. Work-up here in the ER discussed with Dr. Bright. No obvious source of infection however no clear explanation of the elevated inflammatory properties. Upon reassessment patient without any tremor whatsoever. Throughout his ER visit he remains hypertensive and tachycardic. Patient is asymptomatic at this time. He is requesting discharge. In his complex history, treatment chemotherapy, will reach out to his oncologist. I was able to discuss the case with Dr. Agudelo. He felt as though if there is no obvious source of infection the patient could be safely discharged from the ER and he be happy to follow the patient in his office as an outpatient. We discussed his work-up and laboratory values here in the ER. He had no additional recommendations. This conversation was relayed with the patient who was relieved that he could be discharged, had no additional questions or concerns. He was encouraged to return to the ER for new or worsening symptoms, otherwise contact his oncology team tomorrow for prompt outpatient reevaluation. Medical Records Medical records reviewed: Yes I reviewed the patient's medical records. Imaging Data Radiologic Study: Attestation: I personally reviewed and interpreted this imaging study as follows: Imaging: X-Ray Radiologist's impression: Chest x-ray read by radiology is unremarkable Lab Data Lab results reviewed: Yes I reviewed the patient's lab results. Lab results narrative: 02/02/20 13:15 Blood Blood Culture - Preliminary NO GROWTH 24 HOURS 02/02/20 14:23 Blood Blood Culture - Pending Laboratory Tests Range/Units 02/02/20 02/02/20 02/02/20 13:15 13:15 13:15 WBC (4.4-10.8) k/cumm 4.15 L RBC (4.50-6.00) m/cumm 4.65 Hgb (13.5-17.5) g/dL 13.5 Hct (40.0-50.0) % 42.4 MCV (80-95) fL 91.2 MCH (27.0-33.0) pg 29.0 MCHC (32.0-36.0) g/dL 31.8 L RDW (11.8-14.1) % 13.5 Plt Count (130-400) x1000/uL 112 L MPV (8.0-11.0) fL 10.3 Immature Gran % % 0.5 Neutrophils % 77.6 Lymphocytes % 18.3 Monocytes % 2.4 Eosinophils % 0.7 Basophils % 0.5 Absolute Neutrophils (1.2-6.7) k/cumm 3.22 Absolute Lymphocytes (1.2-3.4) k/cumm 0.76 L Absolute Monocytes (0.11-0.7) k/cumm 0.10 L Absolute Eosinophils (0.0-0.7) k/cumm 0.03 Absolute Basophils (0.0-0.2) k/cumm 0.02 ESR Cancelled PT (9.3-11.0) sec INR (0.9-1.1) Sodium (136-145) mmol/L 143 Potassium (3.5-5.1) mmol/L 2.7 L* D Chloride (98-107) mmol/L 116 H Carbon Dioxide (21.0-32.0) mmol/L 16.5 L Anion Gap (3-11) mmol/L 10.5 BUN (7-18) mg/dL 16 D Creatinine (0.70-1.30) mg/dL 0.72 D Estimated GFR/1.73 m2 (mL/min/1.73m2) >= 60.00 Glucose (74-106) mg/dL 64 L D Lactate (0.6-1.4) mmol/L 1.1 Calcium (8.5-10.1) mg/dL 5.4 L* Total Bilirubin (0.2-1.0) mg/dL 0.3 AST (15-37) U/L 17 ALT (16-63) U/L 16 Alkaline Phosphatase (46-116) U/L 65 C-Reactive Protein (0.0-0.3) mg/dL 7.93 H Total Protein (6.4-8.2) g/dL 3.9 L Albumin (3.4-5.0) g/dL 1.6 L Urine Color (Yellow) Urine Clarity (Clear) Urine pH (5-8) Ur Specific [place] (1.005-1.025) Urine Protein (Negative) mg/dL Urine Ketones (Negative) mg/dL Urine Blood (Negative) Urine Nitrite (Negative) Urine Bilirubin (Negative) Urine Urobilinogen (Up TO 0.2) EU/dL Ur Leukocyte Esterase (Negative) Urine RBC (0-2) HPF Urine WBC (0-5) HPF Ur Epithelial Cells (Negative) HPF Urine Crystals (Negative) HPF Urine Bacteria (Negative) HPF Urine Casts (Negative) LPF Urine Mucus (Negative) Ur Culture Indicated? Urine Glucose (Negative) mg/dL Range/Units 02/02/20 02/02/20 02/02/20 13:15 13:40 13:45 WBC (4.4-10.8) k/cumm RBC (4.50-6.00) m/cumm Hgb (13.5-17.5) g/dL Hct (40.0-50.0) % MCV (80-95) fL MCH (27.0-33.0) pg MCHC (32.0-36.0) g/dL RDW (11.8-14.1) % Plt Count (130-400) x1000/uL MPV (8.0-11.0) fL Immature Gran % % Neutrophils % Lymphocytes % Monocytes % Eosinophils % Basophils % Absolute Neutrophils (1.2-6.7) k/cumm Absolute Lymphocytes (1.2-3.4) k/cumm Absolute Monocytes (0.11-0.7) k/cumm Absolute Eosinophils (0.0-0.7) k/cumm Absolute Basophils (0.0-0.2) k/cumm ESR 47 H PT (9.3-11.0) sec 10.3 INR (0.9-1.1) 1.0 Sodium (136-145) mmol/L Potassium (3.5-5.1) mmol/L Chloride (98-107) mmol/L Carbon Dioxide (21.0-32.0) mmol/L Anion Gap (3-11) mmol/L BUN (7-18) mg/dL Creatinine (0.70-1.30) mg/dL Estimated GFR/1.73 m2 (mL/min/1.73m2) Glucose (74-106) mg/dL Lactate (0.6-1.4) mmol/L Calcium (8.5-10.1) mg/dL Total Bilirubin (0.2-1.0) mg/dL AST (15-37) U/L ALT (16-63) U/L Alkaline Phosphatase (46-116) U/L C-Reactive Protein (0.0-0.3) mg/dL Total Protein (6.4-8.2) g/dL Albumin (3.4-5.0) g/dL Urine Color (Yellow) Yellow Urine Clarity (Clear) Clear Urine pH (5-8) 5.5 Ur Specific [place] (1.005-1.025) 1.025 Urine Protein (Negative) mg/dL 30 H Urine Ketones (Negative) mg/dL Negative Urine Blood (Negative) Small H Urine Nitrite (Negative) Negative Urine Bilirubin (Negative) Negative Urine Urobilinogen (Up TO 0.2) EU/dL 0.2 Ur Leukocyte Esterase (Negative) Negative Urine RBC (0-2) HPF 0-2 Urine WBC (0-5) HPF 0-2 Ur Epithelial Cells (Negative) HPF Rare Urine Crystals (Negative) HPF Negative Urine Bacteria (Negative) HPF Rare Urine Casts (Negative) LPF Comment Urine Mucus (Negative) Negative Ur Culture Indicated? No Urine Glucose (Negative) mg/dL Negative Range/Units 02/02/20 02/02/20 15:00 15:00 WBC (4.4-10.8) k/cumm 4.11 L RBC (4.50-6.00) m/cumm 4.06 L Hgb (13.5-17.5) g/dL 12.0 L Hct (40.0-50.0) % 36.9 L MCV (80-95) fL 90.9 MCH (27.0-33.0) pg 29.6 MCHC (32.0-36.0) g/dL 32.5 RDW (11.8-14.1) % 13.4 Plt Count (130-400) x1000/uL 134 MPV (8.0-11.0) fL 9.4 Immature Gran % % 0.5 Neutrophils % 84.2 Lymphocytes % 13.4 Monocytes % 1.5 Eosinophils % 0.2 Basophils % 0.2 Absolute Neutrophils (1.2-6.7) k/cumm 3.46 Absolute Lymphocytes (1.2-3.4) k/cumm 0.55 L Absolute Monocytes (0.11-0.7) k/cumm 0.06 L Absolute Eosinophils (0.0-0.7) k/cumm 0.01 Absolute Basophils (0.0-0.2) k/cumm 0.01 ESR 47 H PT (9.3-11.0) sec INR (0.9-1.1) Sodium (136-145) mmol/L 136 Potassium (3.5-5.1) mmol/L 4.8 D Chloride (98-107) mmol/L 104 Carbon Dioxide (21.0-32.0) mmol/L 22.7 Anion Gap (3-11) mmol/L 9.3 BUN (7-18) mg/dL 23 H Creatinine (0.70-1.30) mg/dL 1.28 D Estimated GFR/1.73 m2 (mL/min/1.73m2) 54.35 Glucose (74-106) mg/dL 93 Lactate (0.6-1.4) mmol/L Calcium (8.5-10.1) mg/dL 8.6 Total Bilirubin (0.2-1.0) mg/dL 0.6 AST (15-37) U/L 25 ALT (16-63) U/L 27 Alkaline Phosphatase (46-116) U/L 107 C-Reactive Protein (0.0-0.3) mg/dL 12.50 H Total Protein (6.4-8.2) g/dL 6.3 L Albumin (3.4-5.0) g/dL 2.7 L Urine Color (Yellow) Urine Clarity (Clear) Urine pH (5-8) Ur Specific [place] (1.005-1.025) Urine Protein (Negative) mg/dL Urine Ketones (Negative) mg/dL Urine Blood (Negative) Urine Nitrite (Negative) Urine Bilirubin (Negative) Urine Urobilinogen (Up TO 0.2) EU/dL Ur Leukocyte Esterase (Negative) Urine RBC (0-2) HPF Urine WBC (0-5) HPF Ur Epithelial Cells (Negative) HPF Urine Crystals (Negative) HPF Urine Bacteria (Negative) HPF Urine Casts (Negative) LPF Urine Mucus (Negative) Ur Culture Indicated? Urine Glucose (Negative) mg/dL ECG Data Attestation: I personally reviewed and interpreted this ECG (s) as follows: Interpretation: EKG performed at 1426. Sinus rhythm. Ventricular of 96. No STEMI. Reviewed and interpreted with Dr. Deangelo BENITEZ General Date/Time Provider Initiated Documentation: 02/02/20 12:30. Limitations to Documentation: no limitations. Information obtained by: patient. HPI Narrative: This is a 79-year-old gentleman who presents to the ER after having had shaking, potential rigors, at the [facility] when finishing his chemotherapy infusion. This occurred approximately 1130. Apparently at the time he had mild right back-flank discomfort. Upon presentation to the ER he has no pain whatsoever and reports that the shaking is dramatically improved although not gone completely. He denies recent illness or trauma. Denies headache, visual changes, neck pain, fever, chest pain, shortness of breath, abdominal pain, nausea, vomiting, change in bowel or bladder function. He has a past medical history that includes hypertension, hyperlipidemia, De Los Santos's esophagus, GERD, tubular adenoma of the colon, primary malignant neoplasm of the prostate, hiatal hernia, Carmichael's palsy, right inguinal hernia, prostatectomy, nephrectomy. He was sent to the ER by Dr. Nguyen for potential infectious process work-up Related Data Home Medications Medication Instructions Recorded Confirmed cholecalciferol (vitamin D3) 1,000 unit PO DAILY 01/27/13 02/02/20 omeprazole magnesium [Prilosec OTC] 20 mg PO DAILY tab 01/27/13 02/02/20 aspirin [Aspir-Low] 81 mg PO DAILY #12 tab-cap 02/16/14 02/02/20 atorvastatin [Lipitor] 40 mg PO HS #90 tab-cap 05/24/17 02/02/20 losartan 100 mg PO DAILY #90 tab-cap 05/24/17 02/02/20 [id number] acid 300 1 tab PO DAILY 07/14/18 02/02/20 mcg-lycopene 600 mcg-lutein 300 mcg tablet Previous Rx's Medication Instructions Recorded atorvastatin [Lipitor] 40 mg PO HS #90 tab-cap 05/24/17 losartan 100 mg PO DAILY #90 tab-cap 05/24/17 Allergies Allergy/AdvReac Type Severity Reaction Status Date / Time oxycodone HCl [From Percocet] AdvReac Intermediate dizziness Verified 02/02/20 12:17 baclofen AdvReac altered Verified 02/02/20 12:17 mental status lisinopril AdvReac Verified 02/02/20 12:17 General Stated Complaint: GenMedical DI: 3 Review of Systems Constitutional Constitutional: Denies fatigue, Denies fever(s) and Denies weakness Eyes Eyes: Denies change in vision ENT Ears, Nose, Mouth, and Throat: Denies sore throat Cardiovascular Cardiovascular: Denies chest pain and Denies dyspnea Respiratory Respiratory: Denies cough and Denies dyspnea Gastrointestinal Gastrointestinal: Denies abdominal pain, Denies diarrhea, Denies nausea and Denies vomiting Genitourinary Genitourinary: Denies dysuria Musculoskeletal Musculoskeletal: Denies back pain, Denies numbness and Denies tingling Integumentary/Breasts Skin/Breast: Denies rash Neurologic Neurologic: Denies numbness, Denies tingling and Denies weakness Endocrine Endocrine: Denies fatigue Hematologic/Lymphatic Hematologic/Lymphatic: Denies easy bleeding and Denies easy bruising [facility] Medical History 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) Cataract (Acute) Essential hypertension (Chronic) Gastric motor function disorder (Acute) GERD (gastroesophageal reflux disease) (Chronic) Hiatal hernia (Acute) History of colon polyps (Chronic) Hyperlipidemia (Chronic) Hypertension (Chronic) Kidney malignancy (Chronic) Malignant neoplasm of skin (Acute 07/11/93) BASAL CELL CARCINOMA Ranjan's disease of chest FADI (obstructive sleep apnea) (Chronic) uses CPAP Primary malignant neoplasm of prostate (Acute) PROSTATECTOMY 1995 Renal insufficiency (Chronic) Right groin pain (Acute) Right inguinal hernia (Inactive) per pt he does not have a hernia Sensorineural hearing loss, bilateral (Acute 02/11/14) Stroke (Chronic) 2001; sx unknown; on ASA ever since Tubular adenoma of colon (Acute 06/12/16) Surgical History Colonoscopy - MAC (04/21/13) DR. Ric VALENCIA EGD & Colonoscopy (06/12/16) H/O esophagogastroduodenoscopy (Resolved ~11/12/18) History of kidney removal (Resolved) right nephrectomy Hx of cystoscopy (Acute) Nasal septoplasty (~2001) Prostatectomy (~1995) S/P T&A (status post tonsillectomy and adenoidectomy) (Resolved) Family History Mother Heart disease Father Personal history of malignant neoplasm Prostate Heart disease Leukemia Prostate cancer Brother Personal history of malignant neoplasm Prostate Grandfather Stroke Grandmother Stroke Brother Personal history of malignant neoplasm Prostate Social History Smoking/Tobacco Use Status: Never Alcohol Intake: current Alcohol Intake frequency: a few times a week Alcohol type: beer and wine Drug use: Never Substance use type: does not use Household members: spouse Number of Children: 4 Do you feel safe at home: Yes Do you feel safe in your relationship?: Yes Additional Social history: with memory issues. Exam Const General: cooperative, healthy appearing, comfortable and no acute distress Orientation: alert, awake and oriented x3 HENMT Head: normal to inspection, normocephalic and atraumatic Face and sinus: normal facial exam Mouth: moist mucous membranes Throat: posterior oropharynx normal Eyes General: appearance normal, both eyes and all related structures Alignment and Position: alignment normal Periorbital: periorbital findings normal Eyelids: eyelids normal Conjunctivae: conjunctivae normal Sclera: sclerae normal Cornea: corneas normal Pupils: PERRL EOM: EOM intact bilaterally Direct ophthalmoscopy: normal light reflex Neck Neck: normal visual inspection, full ROM, no meningeal signs, trachea midline, supple and nontender Chest Chest: normal inspection of the chest, normal palpation of entire chest wall and other (Port present right sided chest, no evidence of infection) Resp Effort & Inspection: normal respiratory effort and able to speak in complete sentences Auscultation: clear to auscultation bilaterally Cardio Rate: regular rate Rhythm: regular rhythm GI Inspection: normal to inspection Palpation: soft, not firm, no guarding and nontender Auscultation: normal bowel sounds Back/Spine/Pelvis Back: No back tenderness Skin General skin exam: no rashes or lesions noted Neuro General: patient alert, patient awake, patient oriented x3, moves all extremities and no focal motor deficits Cranial Nerves: CN's II-XI intact bilaterally Cognition: normal cognition Speech: speech normal Gait: normal gait Motor: muscle tone normal throughout, strength 5/5 throughout and tremor (Fine essential tremor noted) Sensory Exam: no sensory deficits noted Extrem General: normal to inspection, full ROM, capillary refill normal, no pedal edema and no calf tenderness Psych Appearance: grossly normal Mental Status: mental status grossly normal Course Vital Signs Vital signs: Vital Signs Temperature 36.9 C 02/02/20 12:12 Pulse 80 02/02/20 12:12 Respiratory Rate 18 02/02/20 12:12 Blood Pressure 167/90 H 02/02/20 12:12 Pulse Oximetry 97 02/02/20 12:12 Temperature 36.9 C 02/02/20 12:12 Temperature Source Temporal Artery Scan 02/02/20 12:12 Pulse 98 H 02/02/20 14:35 Pulse 93 H 02/02/20 14:40 Respiratory Rate 20 02/02/20 14:40 Respiratory Effort Non-Labored 02/02/20 12:19 Respiratory Depth Normal 02/02/20 12:19 Respiratory Pattern Normal 02/02/20 12:19 Blood Pressure 163/106 H 02/02/20 14:35 Blood Pressure Mean 122 02/02/20 14:35 Blood Pressure Position Sitting 02/02/20 12:12 Pulse Oximetry 96 02/02/20 14:40 Oxygen Delivery Method Room Air 02/02/20 12:12 Oxygen Flow Rate 0 02/02/20 12:12 Pain Level 0 02/02/20 12:12 Lab/Test Results Lab/Test Results: 02/02/20 14:23 Blood Blood Culture - Pending 02/02/20 13:15 Blood Blood Culture - Pending Laboratory Tests Range/Units 02/02/20 02/02/20 02/02/20 13:15 13:15 13:15 WBC (4.4-10.8) k/cumm 4.15 L RBC (4.50-6.00) m/cumm 4.65 Hgb (13.5-17.5) g/dL 13.5 Hct (40.0-50.0) % 42.4 MCV (80-95) fL 91.2 MCH (27.0-33.0) pg 29.0 MCHC (32.0-36.0) g/dL 31.8 L RDW (11.8-14.1) % 13.5 Plt Count (130-400) x1000/uL 112 L MPV (8.0-11.0) fL 10.3 Immature Gran % % 0.5 Neutrophils % 77.6 Lymphocytes % 18.3 Monocytes % 2.4 Eosinophils % 0.7 Basophils % 0.5 Absolute Neutrophils (1.2-6.7) k/cumm 3.22 Absolute Lymphocytes (1.2-3.4) k/cumm 0.76 L Absolute Monocytes (0.11-0.7) k/cumm 0.10 L Absolute Eosinophils (0.0-0.7) k/cumm 0.03 Absolute Basophils (0.0-0.2) k/cumm 0.02 ESR Cancelled PT (9.3-11.0) sec INR (0.9-1.1) Sodium (136-145) mmol/L 143 Potassium (3.5-5.1) mmol/L 2.7 L* D Chloride (98-107) mmol/L 116 H Carbon Dioxide (21.0-32.0) mmol/L 16.5 L Anion Gap (3-11) mmol/L 10.5 BUN (7-18) mg/dL 16 D Creatinine (0.70-1.30) mg/dL 0.72 D Estimated GFR/1.73 m2 (mL/min/1.73m2) >= 60.00 Glucose (74-106) mg/dL 64 L D Lactate (0.6-1.4) mmol/L 1.1 Calcium (8.5-10.1) mg/dL 5.4 L* Total Bilirubin (0.2-1.0) mg/dL 0.3 AST (15-37) U/L 17 ALT (16-63) U/L 16 Alkaline Phosphatase (46-116) U/L 65 C-Reactive Protein (0.0-0.3) mg/dL 7.93 H Total Protein (6.4-8.2) g/dL 3.9 L Albumin (3.4-5.0) g/dL 1.6 L Urine Color (Yellow) Urine Clarity (Clear) Urine pH (5-8) Ur Specific [place] (1.005-1.025) Urine Protein (Negative) mg/dL Urine Ketones (Negative) mg/dL Urine Blood (Negative) Urine Nitrite (Negative) Urine Bilirubin (Negative) Urine Urobilinogen (Up TO 0.2) EU/dL Ur Leukocyte Esterase (Negative) Urine RBC (0-2) HPF Urine WBC (0-5) HPF Ur Epithelial Cells (Negative) HPF Urine Crystals (Negative) HPF Urine Bacteria (Negative) HPF Urine Casts (Negative) LPF Urine Mucus (Negative) Ur Culture Indicated? Urine Glucose (Negative) mg/dL Range/Units 02/02/20 02/02/20 02/02/20 13:15 13:40 13:45 WBC (4.4-10.8) k/cumm RBC (4.50-6.00) m/cumm Hgb (13.5-17.5) g/dL Hct (40.0-50.0) % MCV (80-95) fL MCH (27.0-33.0) pg MCHC (32.0-36.0) g/dL RDW (11.8-14.1) % Plt Count (130-400) x1000/uL MPV (8.0-11.0) fL Immature Gran % % Neutrophils % Lymphocytes % Monocytes % Eosinophils % Basophils % Absolute Neutrophils (1.2-6.7) k/cumm Absolute Lymphocytes (1.2-3.4) k/cumm Absolute Monocytes (0.11-0.7) k/cumm Absolute Eosinophils (0.0-0.7) k/cumm Absolute Basophils (0.0-0.2) k/cumm ESR 47 H PT (9.3-11.0) sec 10.3 INR (0.9-1.1) 1.0 Sodium (136-145) mmol/L Potassium (3.5-5.1) mmol/L Chloride (98-107) mmol/L Carbon Dioxide (21.0-32.0) mmol/L Anion Gap (3-11) mmol/L BUN (7-18) mg/dL Creatinine (0.70-1.30) mg/dL Estimated GFR/1.73 m2 (mL/min/1.73m2) Glucose (74-106) mg/dL Lactate (0.6-1.4) mmol/L Calcium (8.5-10.1) mg/dL Total Bilirubin (0.2-1.0) mg/dL AST (15-37) U/L ALT (16-63) U/L Alkaline Phosphatase (46-116) U/L C-Reactive Protein (0.0-0.3) mg/dL Total Protein (6.4-8.2) g/dL Albumin (3.4-5.0) g/dL Urine Color (Yellow) Yellow Urine Clarity (Clear) Clear Urine pH (5-8) 5.5 Ur Specific [place] (1.005-1.025) 1.025 Urine Protein (Negative) mg/dL 30 H Urine Ketones (Negative) mg/dL Negative Urine Blood (Negative) Small H Urine Nitrite (Negative) Negative Urine Bilirubin (Negative) Negative Urine Urobilinogen (Up TO 0.2) EU/dL 0.2 Ur Leukocyte Esterase (Negative) Negative Urine RBC (0-2) HPF 0-2 Urine WBC (0-5) HPF 0-2 Ur Epithelial Cells (Negative) HPF Rare Urine Crystals (Negative) HPF Negative Urine Bacteria (Negative) HPF Rare Urine Casts (Negative) LPF Comment Urine Mucus (Negative) Negative Ur Culture Indicated? No Urine Glucose (Negative) mg/dL Negative Range/Units 02/02/20 15:00 WBC (4.4-10.8) k/cumm 4.11 L RBC (4.50-6.00) m/cumm 4.06 L Hgb (13.5-17.5) g/dL 12.0 L Hct (40.0-50.0) % 36.9 L MCV (80-95) fL 90.9 MCH (27.0-33.0) pg 29.6 MCHC (32.0-36.0) g/dL 32.5 RDW (11.8-14.1) % 13.4 Plt Count (130-400) x1000/uL 134 MPV (8.0-11.0) fL 9.4 Immature Gran % % 0.5 Neutrophils % 84.2 Lymphocytes % 13.4 Monocytes % 1.5 Eosinophils % 0.2 Basophils % 0.2 Absolute Neutrophils (1.2-6.7) k/cumm 3.46 Absolute Lymphocytes (1.2-3.4) k/cumm 0.55 L Absolute Monocytes (0.11-0.7) k/cumm 0.06 L Absolute Eosinophils (0.0-0.7) k/cumm 0.01 Absolute Basophils (0.0-0.2) k/cumm 0.01 ESR PT (9.3-11.0) sec INR (0.9-1.1) Sodium (136-145) mmol/L Potassium (3.5-5.1) mmol/L Chloride (98-107) mmol/L Carbon Dioxide (21.0-32.0) mmol/L Anion Gap (3-11) mmol/L BUN (7-18) mg/dL Creatinine (0.70-1.30) mg/dL Estimated GFR/1.73 m2 (mL/min/1.73m2) Glucose (74-106) mg/dL Lactate (0.6-1.4) mmol/L Calcium (8.5-10.1) mg/dL Total Bilirubin (0.2-1.0) mg/dL AST (15-37) U/L ALT (16-63) U/L Alkaline Phosphatase (46-116) U/L C-Reactive Protein (0.0-0.3) mg/dL Total Protein (6.4-8.2) g/dL Albumin (3.4-5.0) g/dL Urine Color (Yellow) Urine Clarity (Clear) Urine pH (5-8) Ur Specific [place] (1.005-1.025) Urine Protein (Negative) mg/dL Urine Ketones (Negative) mg/dL Urine Blood (Negative) Urine Nitrite (Negative) Urine Bilirubin (Negative) Urine Urobilinogen (Up TO 0.2) EU/dL Ur Leukocyte Esterase (Negative) Urine RBC (0-2) HPF Urine WBC (0-5) HPF Ur Epithelial Cells (Negative) HPF Urine Crystals (Negative) HPF Urine Bacteria (Negative) HPF Urine Casts (Negative) LPF Urine Mucus (Negative) Ur Culture Indicated? Urine Glucose (Negative) mg/dL
[2020-02-02 15:26] LABS: ALT 27 U/L (16-63); AST 25 U/L (15-37); Albumin 2.7 g/dL (3.4-5.0); Alkaline Phosphatase 107 U/L (46-116); Anion Gap 9.3 mmol/L (3-11); BUN 23 mg/dL (7-18); Bilirubin, Total 0.6 mg/dL (0.2-1.0); CO2 22.7 mmol/L (21.0-32.0); CREATININE 1.28 mg/dL (0.70-1.30); Calcium 8.6 mg/dL (8.5-10.1); Chloride 104 mmol/L (98-107); Estimated GFR 54.35 (mL/min/1.73m2); Glucose 93 mg/dL (74-106); Potassium 4.8 mmol/L (3.5-5.1); Sodium 136 mmol/L (136-145); Total Protein 6.3 g/dL (6.4-8.2)
[2020-02-02 15:56] LABS: ESR 47 mm/hr (1-20)
== END 2020-02-02 16:10 | disposition home or self-care (01) ==
PROVIDERS: Emergency Provider Physician Assistant; PCP Nurse Practitioner
DX: R25.1 Tremor, unspecified (principal); E87.6 Hypokalemia; E83.52 Hypercalcemia; Z95.828 Presence of other vascular implants and grafts; I10 Essential (primary) hypertension; C61 Malignant neoplasm of prostate; Z79.899 Other long term (current) drug therapy
CPT/HCPCS: 36416; 36591; 80053; 82962; 85652; 87040; 93005; 96361; 96374; 99285; 71046; 81003; 81015; 83605; 83735; 85025; 85610; 86140; 93010; 99284; J3480

== ENCOUNTER 2020-03-08 01:56 | Outpatient (RCR) | payer MEDICARE, SELFPAY ==
[2020-02-16] MEDS: Normal Saline Flush 10 ML SYR IVP (07:31)
[2020-02-16 07:45] LABS: Abs Immature Grans 0.02 k/cumm (0.0-0.09); Absolute Basophil Count 0.02 k/cumm (0.0-0.2); Absolute Eosinophil Count 0.05 k/cumm (0.0-0.7); Absolute Lymphocyte Count 1.07 k/cumm (1.2-3.4); Absolute Monocyte Count 0.56 k/cumm (0.11-0.7); Absolute Neutrophil Count 3.14 k/cumm (1.2-6.7); Basophils % 0.4; HCT 37.5 % (40.0-50.0); HGB 12.1 g/dL (13.5-17.5); Immature Grans % 0.4 %; Mean Corp. HGB Concentration 32.3 g/dL (32.0-36.0); Mean Corpuscular Hemoglobin 29.4 pg (27.0-33.0); Mean Platelet Volume 8.5 fL (8.0-11.0); Monocytes % 11.5; Neutrophils % 64.7; RBC 4.12 m/cumm (4.50-6.00); RBC Distribution Width 13.3 % (11.8-14.1); White Blood Cell Count 4.86 k/cumm (4.4-10.8)
[2020-02-16 07:56] LABS: ALT 47 U/L (16-63); AST 32 U/L (15-37); Alkaline Phosphatase 132 U/L (46-116); Anion Gap 7.9 mmol/L (3-11); BUN 19 mg/dL (7-18); Bilirubin, Total 0.2 mg/dL (0.2-1.0); CO2 28.1 mmol/L (21.0-32.0); CREATININE 1.67 mg/dL (0.70-1.30); Calcium 10.1 mg/dL (8.5-10.1); Chloride 100 mmol/L (98-107); Estimated GFR 39.99 (mL/min/1.73m2); Glucose 130 mg/dL (74-106); Potassium 3.9 mmol/L (3.5-5.1); Sodium 136 mmol/L (136-145); Total Protein 7.4 g/dL (6.4-8.2)
[2020-02-16 08:11] LABS: Diff Comment Diff Reviewed; Platelet Count 1073 x1000/uL (130-400); RBC Morphology Normal
[2020-02-23] MEDS: Normal Saline Flush 10 ML SYR IVP (08:41)
[2020-02-23 08:56] LABS: Abs Immature Grans 0.03 k/cumm (0.0-0.09); Absolute Basophil Count 0.02 k/cumm (0.0-0.2); Absolute Eosinophil Count 0.01 k/cumm (0.0-0.7); Absolute Lymphocyte Count 0.77 k/cumm (1.2-3.4); Absolute Monocyte Count 0.21 k/cumm (0.11-0.7); Basophils % 0.6; Eosinophils % 0.3; HCT 35.9 % (40.0-50.0); HGB 11.6 g/dL (13.5-17.5); Immature Grans % 0.9 %; Lymphocytes % 23.1; Mean Corp. HGB Concentration 32.3 g/dL (32.0-36.0); Mean Corpuscular Hemoglobin 29.3 pg (27.0-33.0); Mean Corpuscular Volume 90.7 fL (80-95); Mean Platelet Volume 8.9 fL (8.0-11.0); Monocytes % 6.3; Neutrophils % 68.8; Platelet Count 492 x1000/uL (130-400); RBC 3.96 m/cumm (4.50-6.00); RBC Distribution Width 13.4 % (11.8-14.1); White Blood Cell Count 3.34 k/cumm (4.4-10.8)
[2020-02-23 09:11] LABS: ALT 72 U/L (16-63); AST 40 U/L (15-37); Albumin 2.9 g/dL (3.4-5.0); Alkaline Phosphatase 140 U/L (46-116); Anion Gap 9.5 mmol/L (3-11); BUN 31 mg/dL (7-18); Bilirubin, Total 0.2 mg/dL (0.2-1.0); CO2 25.5 mmol/L (21.0-32.0); CREATININE 1.72 mg/dL (0.70-1.30); Calcium 9.7 mg/dL (8.5-10.1); Chloride 100 mmol/L (98-107); Estimated GFR 38.65 (mL/min/1.73m2); Glucose 111 mg/dL (74-106); Potassium 4.4 mmol/L (3.5-5.1); Sodium 135 mmol/L (136-145); Total Protein 7.2 g/dL (6.4-8.2)
[2020-03-01] MEDS: Normal Saline Flush 10 ML SYR IVP (07:20)
[2020-03-01 07:57] LABS: Abs Immature Grans 0.01 k/cumm (0.0-0.09); Absolute Basophil Count 0.02 k/cumm (0.0-0.2); Absolute Eosinophil Count 0.04 k/cumm (0.0-0.7); Absolute Lymphocyte Count 0.69 k/cumm (1.2-3.4); Absolute Neutrophil Count 3.36 k/cumm (1.2-6.7); Basophils % 0.4; Eosinophils % 0.9; HGB 11.2 g/dL (13.5-17.5); Immature Grans % 0.2 %; Lymphocytes % 15.3; Mean Corpuscular Hemoglobin 29.3 pg (27.0-33.0); Mean Corpuscular Volume 91.6 fL (80-95); Mean Platelet Volume 9.5 fL (8.0-11.0); Monocytes % 8.8; Neutrophils % 74.4; Platelet Count 174 x1000/uL (130-400); RBC 3.82 m/cumm (4.50-6.00); RBC Distribution Width 14.9 % (11.8-14.1); White Blood Cell Count 4.52 k/cumm (4.4-10.8)
[2020-03-01 08:25] LABS: ALT 31 U/L (16-63); AST 22 U/L (15-37); Albumin 2.9 g/dL (3.4-5.0); Alkaline Phosphatase 130 U/L (46-116); Anion Gap 9.9 mmol/L (3-11); BUN 18 mg/dL (7-18); Bilirubin, Total 0.3 mg/dL (0.2-1.0); CO2 25.1 mmol/L (21.0-32.0); CREATININE 1.53 mg/dL (0.70-1.30); Calcium 9.2 mg/dL (8.5-10.1); Chloride 104 mmol/L (98-107); Estimated GFR 44.12 (mL/min/1.73m2); Glucose 119 mg/dL (74-106); Potassium 4.1 mmol/L (3.5-5.1); Sodium 139 mmol/L (136-145); Total Protein 6.8 g/dL (6.4-8.2)
== END 2020-03-11 23:59 | disposition home or self-care (01) ==
LOC: INF 01:56
PROVIDERS: PCP Nurse Practitioner; Visit Provider Internal Medicine
DX: C79.10 Secondary malignant neoplasm of unspecified urinary organs (principal); Z45.2 Encounter for adjustment and management of vascular access device
CPT/HCPCS: 36415; 36591; 80053; 85025

== ENCOUNTER 2020-04-05 01:08 | Outpatient (RCR) | payer MEDICARE, SELFPAY ==
[2020-03-15 11:23] LABS: Abs Immature Grans 0.03 10^3/uL (0.0-0.06); Absolute Basophil Count 0.04 10^3/uL (0.0-0.2); Absolute Eosinophil Count 0.21 10^3/uL (0.0-0.7); Absolute Lymphocyte Count 0.56 10^3/uL (1.2-3.4); Absolute Monocyte Count 0.54 10^3/uL (0.1-0.8); Absolute Neutrophil Count 3.49 10^3/uL (1.2-6.7); Basophils % 0.8; Eosinophils % 4.3; HCT 36.9 % (40.0-50.0); Immature Grans % 0.6; Lymphocytes % 11.5; MCH 30.7 pg (27.0-33.0); MCHC 32.5 % (32.0-36.0); MCV 94.4 fL (80-95); MPV 9.5 fL (8.0-11.0); Monocytes % 11.1; Neutrophils % 71.7; Platelet Count 221 10^3/uL (130-400); RBC 3.91 10^6/uL (4.36-5.78); RDW 17.1 % (11.8-14.1); RDW-SD 55.3 fL; WBC 4.87 10^3/uL (4.4-10.8)
[2020-03-15 11:35] LABS: ALT 24 U/L (16-63); AST 19 U/L (15-37); Albumin 3.3 g/dL (3.4-5.0); Alkaline Phosphatase 131 U/L (46-116); Anion Gap 6.2 mmol/L (3-11); BUN 17 mg/dL (7-18); Bilirubin, Total 0.2 mg/dL (0.2-1.0); CO2 27.8 mmol/L (21.0-32.0); CREATININE 1.49 mg/dL (0.70-1.30); Calcium 9.8 mg/dL (8.5-10.1); Chloride 104 mmol/L (98-107); Glucose 108 mg/dL (74-106); Potassium 4.5 mmol/L (3.5-5.1); Sodium 138 mmol/L (136-145); Total Protein 7.3 g/dL (6.4-8.2)
[2020-03-15] MEDS: Normal Saline Flush 10 ML SYR IVP (12:19)
[2020-03-22] MEDS: Normal Saline Flush 10 ML SYR IVP (08:05)
[2020-03-22 08:52] LABS: Abs Immature Grans 0.01 10^3/uL (0.0-0.06); Absolute Basophil Count 0.04 10^3/uL (0.0-0.2); Absolute Eosinophil Count 0.08 10^3/uL (0.0-0.7); Absolute Monocyte Count 0.05 10^3/uL (0.1-0.8); Absolute Neutrophil Count 1.12 10^3/uL (1.2-6.7); HCT 33.7 % (40.0-50.0); Immature Grans % 0.5; MCH 31.3 pg (27.0-33.0); MCHC 32.6 % (32.0-36.0); MPV 9.4 fL (8.0-11.0); Monocytes % 2.5; Nucleated RBC 0 %; Platelet Count 297 10^3/uL (130-400); RBC 3.51 10^6/uL (4.36-5.78); RDW 16.3 % (11.8-14.1); RDW-SD 55.9 fL
[2020-03-22 09:07] LABS: ALT 35 U/L (16-63); AST 28 U/L (15-37); Albumin 3.2 g/dL (3.4-5.0); Alkaline Phosphatase 131 U/L (46-116); Anion Gap 9.6 mmol/L (3-11); BUN 21 mg/dL (7-18); Bilirubin, Total 0.4 mg/dL (0.2-1.0); CO2 23.4 mmol/L (21.0-32.0); CREATININE 1.49 mg/dL (0.70-1.30); Calcium 9.5 mg/dL (8.5-10.1); Chloride 103 mmol/L (98-107); Glucose 109 mg/dL (74-106); Potassium 4.5 mmol/L (3.5-5.1); Sodium 136 mmol/L (136-145); Total Protein 7.2 g/dL (6.4-8.2)
[2020-03-22 09:28] LABS: Anisocytosis 1+; Diff Comment Diff Reviewed
[2020-03-29] MEDS: Normal Saline Flush 10 ML SYR IVP (08:19)
[2020-03-29 08:45] LABS: Abs Immature Grans 0.01 10^3/uL (0.0-0.06); Absolute Basophil Count 0.02 10^3/uL (0.0-0.2); Absolute Lymphocyte Count 0.64 10^3/uL (1.2-3.4); Absolute Monocyte Count 0.35 10^3/uL (0.1-0.8); Absolute Neutrophil Count 2.16 10^3/uL (1.2-6.7); Basophils % 0.6; HCT 36.1 % (40.0-50.0); HGB 11.7 g/dL (13.5-17.5); Immature Grans % 0.3; Lymphocytes % 19.5; MCH 31.5 pg (27.0-33.0); MCHC 32.4 % (32.0-36.0); MCV 97.3 fL (80-95); MPV 9.7 fL (8.0-11.0); Monocytes % 10.7; Neutrophils % 65.9; Nucleated RBC 0 %; Platelet Count 162 10^3/uL (130-400); RBC 3.71 10^6/uL (4.36-5.78); RDW 18.2 % (11.8-14.1); RDW-SD 62.5 fL; WBC 3.28 10^3/uL (4.4-10.8)
[2020-03-29 09:01] LABS: ALT 25 U/L (16-63); AST 22 U/L (15-37); Albumin 3.5 g/dL (3.4-5.0); Alkaline Phosphatase 114 U/L (46-116); Anion Gap 7.9 mmol/L (3-11); BUN 17 mg/dL (7-18); Bilirubin, Total 0.3 mg/dL (0.2-1.0); CO2 28.1 mmol/L (21.0-32.0); CREATININE 1.49 mg/dL (0.70-1.30); Chloride 106 mmol/L (98-107); Glucose 102 mg/dL (74-106); Potassium 4.4 mmol/L (3.5-5.1); Sodium 142 mmol/L (136-145); Total Protein 7.4 g/dL (6.4-8.2)
== END 2020-04-11 23:59 | disposition home or self-care (01) ==
LOC: INF 01:08
PROVIDERS: PCP Nurse Practitioner; Visit Provider Internal Medicine
DX: C79.10 Secondary malignant neoplasm of unspecified urinary organs (principal); Z45.2 Encounter for adjustment and management of vascular access device
CPT/HCPCS: 36415; 36591; 80053; 96523; 85025

== ENCOUNTER 2020-05-10 01:58 | Outpatient (RCR) | payer MEDICARE, SELFPAY ==
[2020-04-19] MEDS: Normal Saline Flush 10 ML SYR IVP (07:41)
[2020-04-19 07:52] LABS: Abs Immature Grans 0.03 10^3/uL (0.0-0.06); Absolute Basophil Count 0.06 10^3/uL (0.0-0.2); Absolute Eosinophil Count 0.28 10^3/uL (0.0-0.7); Absolute Monocyte Count 0.63 10^3/uL (0.1-0.8); Basophils % 1.4; Eosinophils % 6.4; HCT 38.5 % (40.0-50.0); HGB 12.5 g/dL (13.5-17.5); Immature Grans % 0.7; Lymphocytes % 18.2; MCH 33.2 pg (27.0-33.0); MCHC 32.5 % (32.0-36.0); MCV 102.1 fL (80-95); MPV 9.4 fL (8.0-11.0); Monocytes % 14.3; Nucleated RBC 0 %; Platelet Count 398 10^3/uL (130-400); RBC 3.77 10^6/uL (4.36-5.78); RDW-SD 68.2 fL
[2020-04-19 08:02] LABS: ALT 17 U/L (16-63); AST 18 U/L (15-37); Albumin 3.5 g/dL (3.4-5.0); Alkaline Phosphatase 107 U/L (46-116); Anion Gap 6.3 mmol/L (3-11); BUN 20 mg/dL (7-18); Bilirubin, Total 0.3 mg/dL (0.2-1.0); CO2 26.7 mmol/L (21.0-32.0); CREATININE 1.69 mg/dL (0.70-1.30); Calcium 9.6 mg/dL (8.5-10.1); Chloride 105 mmol/L (98-107); Estimated GFR 39.34 (mL/min/1.73m2); Glucose 101 mg/dL (74-106); Potassium 4.4 mmol/L (3.5-5.1); Sodium 138 mmol/L (136-145); Total Protein 7.1 g/dL (6.4-8.2)
[2020-04-26 08:14] LABS: ALT 34 U/L (16-63); AST 28 U/L (15-37); Albumin 3.5 g/dL (3.4-5.0); Alkaline Phosphatase 110 U/L (46-116); Anion Gap 6.5 mmol/L (3-11); BUN 22 mg/dL (7-18); Bilirubin, Total 0.5 mg/dL (0.2-1.0); CO2 28.5 mmol/L (21.0-32.0); CREATININE 1.58 mg/dL (0.70-1.30); Calcium 9.9 mg/dL (8.5-10.1); Chloride 103 mmol/L (98-107); Estimated GFR 42.52 (mL/min/1.73m2); Glucose 86 mg/dL (74-106); Potassium 4.4 mmol/L (3.5-5.1); Sodium 138 mmol/L (136-145); Total Protein 7.2 g/dL (6.4-8.2)
[2020-04-26 08:22] LABS: Abs Immature Grans 0.01 10^3/uL (0.0-0.06); Absolute Monocyte Count 0.08 10^3/uL (0.1-0.8); HCT 36.5 % (40.0-50.0); HGB 12.2 g/dL (13.5-17.5); MCH 33.6 pg (27.0-33.0); MCHC 33.4 % (32.0-36.0); MCV 100.6 fL (80-95); MPV 10.1 fL (8.0-11.0); Nucleated RBC 0 %; Platelet Count 217 10^3/uL (130-400); RBC 3.63 10^6/uL (4.36-5.78); RDW 15.8 % (11.8-14.1); RDW-SD 58.9 fL
[2020-04-26 09:03] LABS: Absolute Basophil Count 0.06 10^3/uL (0.0-0.2); Absolute Eosinophil Count 0.14 10^3/uL (0.0-0.7); Absolute Neutrophil Count 1.21 10^3/uL (1.2-6.7); Atypical Lymphocytes % 1; Diff Comment Manual Differential; RBC Morphology Normal; WBC 1.98 10^3/uL (4.4-10.8)
[2020-04-26] MEDS: Normal Saline Flush 10 ML SYR IVP (10:37)
[2020-05-10] MEDS: Normal Saline Flush 10 ML SYR IVP (08:40)
[2020-05-10 09:02] LABS: Abs Immature Grans 0.73 10^3/uL (0.0-0.06); HCT 32.4 % (40.0-50.0); HGB 10.7 g/dL (13.5-17.5); MCH 34.9 pg (27.0-33.0); MCV 105.5 fL (80-95); MPV 9.9 fL (8.0-11.0); Nucleated RBC 0 %; Platelet Count 272 10^3/uL (130-400); RBC 3.07 10^6/uL (4.36-5.78); RDW 16.7 % (11.8-14.1); RDW-SD 62.4 fL; WBC 13.72 10^3/uL (4.4-10.8)
[2020-05-10 09:15] LABS: ALT 26 U/L (16-63); AST 23 U/L (15-37); Albumin 3.4 g/dL (3.4-5.0); Alkaline Phosphatase 141 U/L (46-116); Anion Gap 9.2 mmol/L (3-11); BUN 15 mg/dL (7-18); Bilirubin, Total 0.1 mg/dL (0.2-1.0); CO2 26.8 mmol/L (21.0-32.0); CREATININE 1.82 mg/dL (0.70-1.30); Calcium 9.5 mg/dL (8.5-10.1); Chloride 105 mmol/L (98-107); Estimated GFR 36.12 (mL/min/1.73m2); Glucose 103 mg/dL (74-106); Potassium 4.1 mmol/L (3.5-5.1); Sodium 141 mmol/L (136-145); Total Protein 6.9 g/dL (6.4-8.2)
[2020-05-10 09:20] LABS: Bands % 1
[2020-05-10 09:21] LABS: Absolute Eosinophil Count 0.14 10^3/uL (0.0-0.7); Absolute Lymphocyte Count 0.82 10^3/uL (1.2-3.4); Absolute Monocyte Count 1.23 10^3/uL (0.1-0.8); Absolute Neutrophil Count 10.98 10^3/uL (1.2-6.7); Metamyelocytes % 2; Myelocytes % 2
[2020-05-10 09:22] LABS: Anisocytosis 1+; Diff Comment Manual Differential; Macrocytosis 2+; Polychromasia Present
== END 2020-05-11 23:59 | disposition home or self-care (01) ==
LOC: INF 01:58
PROVIDERS: PCP Nurse Practitioner; Visit Provider Internal Medicine
DX: Z45.2 Encounter for adjustment and management of vascular access device; C79.19 Secondary malignant neoplasm of other urinary organs
CPT/HCPCS: 36591; 80053; 85025

== ENCOUNTER 2020-06-07 01:23 | Outpatient (RCR) | payer MEDICARE, SELFPAY ==
[2020-05-17 09:18] LABS: Abs Immature Grans 0.11 10^3/uL (0.0-0.06); Absolute Basophil Count 0.07 10^3/uL (0.0-0.2); Absolute Eosinophil Count 0.15 10^3/uL (0.0-0.7); Absolute Lymphocyte Count 0.77 10^3/uL (1.2-3.4); Absolute Monocyte Count 0.85 10^3/uL (0.1-0.8); Absolute Neutrophil Count 5.99 10^3/uL (1.2-6.7); Basophils % 0.9; Eosinophils % 1.9; HCT 35.6 % (40.0-50.0); HGB 11.6 g/dL (13.5-17.5); Immature Grans % 1.4; Lymphocytes % 9.7; MCH 34.8 pg (27.0-33.0); MCHC 32.6 % (32.0-36.0); MCV 106.9 fL (80-95); MPV 9.3 fL (8.0-11.0); Monocytes % 10.7; Neutrophils % 75.4; Nucleated RBC 0 %; Platelet Count 323 10^3/uL (130-400); RBC 3.33 10^6/uL (4.36-5.78); RDW 16.4 % (11.8-14.1); RDW-SD 64.7 fL; WBC 7.94 10^3/uL (4.4-10.8)
[2020-05-17 09:34] LABS: ALT 19 U/L (16-63); AST 21 U/L (15-37); Albumin 3.3 g/dL (3.4-5.0); Alkaline Phosphatase 120 U/L (46-116); Anion Gap 6.5 mmol/L (3-11); BUN 16 mg/dL (7-18); Bilirubin, Total 0.2 mg/dL (0.2-1.0); CO2 27.5 mmol/L (21.0-32.0); CREATININE 1.63 mg/dL (0.70-1.30); Calcium 9.4 mg/dL (8.5-10.1); Chloride 105 mmol/L (98-107); Estimated GFR 41.02 (mL/min/1.73m2); Glucose 104 mg/dL (74-106); Potassium 4.4 mmol/L (3.5-5.1); Sodium 139 mmol/L (136-145); Total Protein 6.8 g/dL (6.4-8.2)
[2020-05-17 09:36] LABS: Anisocytosis 1+; Diff Comment RBC Morph Reviewed; Macrocytosis 2+
[2020-05-17] MEDS: Normal Saline Flush 10 ML SYR IVP (11:08)
[2020-05-24] MEDS: Normal Saline Flush 10 ML SYR IVP (08:51)
[2020-05-24 08:56] LABS: Absolute Basophil Count 0.05 10^3/uL (0.0-0.2); Absolute Eosinophil Count 0.03 10^3/uL (0.0-0.7); Absolute Lymphocyte Count 0.54 10^3/uL (1.2-3.4); Absolute Neutrophil Count 1.84 10^3/uL (1.2-6.7); Eosinophils % 1.2; HCT 35.6 % (40.0-50.0); HGB 11.7 g/dL (13.5-17.5); Lymphocytes % 21.1; MCH 34.8 pg (27.0-33.0); MCHC 32.9 % (32.0-36.0); MPV 10.1 fL (8.0-11.0); Monocytes % 3.9; Neutrophils % 71.8; Nucleated RBC 0 %; Platelet Count 186 10^3/uL (130-400); RBC 3.36 10^6/uL (4.36-5.78); RDW 14.5 % (11.8-14.1); WBC 2.56 10^3/uL (4.4-10.8)
[2020-05-24 09:08] LABS: ALT 40 U/L (16-63); AST 26 U/L (15-37); Albumin 3.4 g/dL (3.4-5.0); Alkaline Phosphatase 110 U/L (46-116); BUN 23 mg/dL (7-18); Bilirubin, Total 0.4 mg/dL (0.2-1.0); CREATININE 1.54 mg/dL (0.70-1.30); Calcium 9.4 mg/dL (8.5-10.1); Chloride 104 mmol/L (98-107); Estimated GFR 43.79 (mL/min/1.73m2); Glucose 102 mg/dL (74-106); Potassium 4.3 mmol/L (3.5-5.1); Sodium 138 mmol/L (136-145); Total Protein 6.9 g/dL (6.4-8.2)
[2020-05-24 09:23] LABS: Diff Comment RBC Morph Reviewed; Macrocytosis 1+
[2020-06-07] MEDS: Normal Saline Flush 10 ML SYR IVP (12:10)
[2020-06-07 12:17] LABS: Abs Immature Grans 0.87 10^3/uL (0.0-0.06); HCT 34.2 % (40.0-50.0); MCH 34.6 pg (27.0-33.0); MCHC 32.2 % (32.0-36.0); MCV 107.5 fL (80-95); MPV 9.5 fL (8.0-11.0); Nucleated RBC 0 %; Platelet Count 271 10^3/uL (130-400); RBC 3.18 10^6/uL (4.36-5.78); RDW 15.6 % (11.8-14.1); RDW-SD 61.9 fL; WBC 16.16 10^3/uL (4.4-10.8)
[2020-06-07 12:31] LABS: ALT 18 U/L (16-63); AST 19 U/L (15-37); Albumin 3.4 g/dL (3.4-5.0); Alkaline Phosphatase 156 U/L (46-116); Anion Gap 3.9 mmol/L (3-11); BUN 13 mg/dL (7-18); Bilirubin, Total 0.2 mg/dL (0.2-1.0); CO2 27.1 mmol/L (21.0-32.0); CREATININE 1.56 mg/dL (0.70-1.30); Calcium 9.4 mg/dL (8.5-10.1); Chloride 103 mmol/L (98-107); Estimated GFR 43.15 (mL/min/1.73m2); Glucose 115 mg/dL (74-106); Magnesium 1.6 mg/dL (1.8-2.4); Potassium 4.2 mmol/L (3.5-5.1); Sodium 134 mmol/L (136-145); Total Protein 6.9 g/dL (6.4-8.2)
[2020-06-07 12:37] LABS: Absolute Eosinophil Count 0.16 10^3/uL (0.0-0.7); Absolute Lymphocyte Count 0.97 10^3/uL (1.2-3.4); Absolute Monocyte Count 0.97 10^3/uL (0.1-0.8); Absolute Neutrophil Count 13.57 10^3/uL (1.2-6.7)
[2020-06-07 12:38] LABS: Metamyelocytes % 2; Myelocytes % 1
[2020-06-07 12:39] LABS: Anisocytosis 1+; Atypical Lymphocytes % 0; Bands % 0; Diff Comment Manual Differential; Macrocytosis 2+
[2020-06-07 12:40] LABS: Polychromasia Present
== END 2020-06-11 23:59 | disposition home or self-care (01) ==
LOC: INF 01:23
PROVIDERS: PCP Nurse Practitioner; Visit Provider Internal Medicine
DX: C79.10 Secondary malignant neoplasm of unspecified urinary organs (principal); Z45.2 Encounter for adjustment and management of vascular access device
CPT/HCPCS: 36591; 80053; 83735; 85025

== ENCOUNTER 2020-06-14 01:44 | Outpatient (RCR) | payer MEDICARE, SELFPAY ==
[2020-06-14] MEDS: Normal Saline Flush 10 ML SYR IVP (10:14)
[2020-06-14 10:26] LABS: Abs Immature Grans 0.04 10^3/uL (0.0-0.06); Absolute Basophil Count 0.04 10^3/uL (0.0-0.2); Absolute Eosinophil Count 0.06 10^3/uL (0.0-0.7); Absolute Lymphocyte Count 0.49 10^3/uL (1.2-3.4); Absolute Monocyte Count 0.16 10^3/uL (0.1-0.8); Absolute Neutrophil Count 3.12 10^3/uL (1.2-6.7); Eosinophils % 1.5; HCT 35.4 % (40.0-50.0); HGB 11.6 g/dL (13.5-17.5); Lymphocytes % 12.5; MCH 34.7 pg (27.0-33.0); MCHC 32.8 % (32.0-36.0); MPV 9.6 fL (8.0-11.0); Monocytes % 4.1; Neutrophils % 79.9; Nucleated RBC 0 %; Platelet Count 251 10^3/uL (130-400); RBC 3.34 10^6/uL (4.36-5.78); RDW 14.5 % (11.8-14.1); RDW-SD 57.1 fL; WBC 3.91 10^3/uL (4.4-10.8)
[2020-06-14 10:39] LABS: ALT 37 U/L (16-63); AST 27 U/L (15-37); Albumin 3.7 g/dL (3.4-5.0); Alkaline Phosphatase 133 U/L (46-116); Anion Gap 4.9 mmol/L (3-11); BUN 26 mg/dL (7-18); Bilirubin, Total 0.2 mg/dL (0.2-1.0); CO2 27.1 mmol/L (21.0-32.0); CREATININE 1.56 mg/dL (0.70-1.30); Calcium 9.5 mg/dL (8.5-10.1); Chloride 103 mmol/L (98-107); Estimated GFR 43.15 (mL/min/1.73m2); Glucose 105 mg/dL (74-106); Magnesium 1.8 mg/dL (1.8-2.4); Potassium 4.9 mmol/L (3.5-5.1); Sodium 135 mmol/L (136-145); Total Protein 7.2 g/dL (6.4-8.2)
== END 2020-07-11 23:59 | disposition home or self-care (01) ==
LOC: INF 01:44
PROVIDERS: PCP Nurse Practitioner; Visit Provider Internal Medicine
DX: C79.10 Secondary malignant neoplasm of unspecified urinary organs (principal); Z45.2 Encounter for adjustment and management of vascular access device
CPT/HCPCS: 36591; 80053; 83735; 85025

== ENCOUNTER 2020-08-09 02:48 | Outpatient (RCR) | payer MEDICARE, SELFPAY ==
[2020-07-12 12:12] LABS: Abs Immature Grans 0.03 10^3/uL (0.0-0.06); Absolute Basophil Count 0.07 10^3/uL (0.0-0.2); Absolute Eosinophil Count 0.19 10^3/uL (0.0-0.7); Absolute Monocyte Count 0.75 10^3/uL (0.1-0.8); Absolute Neutrophil Count 4.97 10^3/uL (1.2-6.7); Basophils % 0.9; Eosinophils % 2.6; HCT 37.5 % (40.0-50.0); HGB 12.1 g/dL (13.5-17.5); Immature Grans % 0.4; Lymphocytes % 18.9; MCH 34.4 pg (27.0-33.0); MCHC 32.3 % (32.0-36.0); MCV 106.5 fL (80-95); MPV 9.6 fL (8.0-11.0); Monocytes % 10.1; Neutrophils % 67.1; Nucleated RBC 0 %; Platelet Count 198 10^3/uL (130-400); RBC 3.52 10^6/uL (4.36-5.78); RDW 14.7 % (11.8-14.1); RDW-SD 58.1 fL; WBC 7.41 10^3/uL (4.4-10.8)
[2020-07-12 12:30] LABS: Diff Comment RBC Morph Reviewed; Macrocytosis 1+
[2020-07-12 12:42] LABS: ALT 15 U/L (16-63); AST 17 U/L (15-37); Albumin 3.5 g/dL (3.4-5.0); Alkaline Phosphatase 114 U/L (46-116); Anion Gap 6.3 mmol/L (3-11); BUN 22 mg/dL (7-18); Bilirubin, Total 0.3 mg/dL (0.2-1.0); CO2 25.7 mmol/L (21.0-32.0); CREATININE 1.67 mg/dL (0.70-1.30); Calcium 9.2 mg/dL (8.5-10.1); Chloride 106 mmol/L (98-107); Estimated GFR 39.88 (mL/min/1.73m2); FREE T4 1.06 ng/dL (0.76-1.46); Glucose 88 mg/dL (74-106); Potassium 4.5 mmol/L (3.5-5.1); Sodium 138 mmol/L (136-145); TSH 0.87 uIU/mL (0.36-3.74); Total Protein 6.8 g/dL (6.4-8.2)
[2020-07-12] MEDS: Normal Saline Flush 10 ML SYR IVP (13:19)
[2020-07-26] MEDS: Normal Saline Flush 10 ML SYR IVP (07:30)
[2020-07-26 08:32] LABS: Abs Immature Grans 0.02 10^3/uL (0.0-0.06); Absolute Basophil Count 0.04 10^3/uL (0.0-0.2); Absolute Eosinophil Count 1.16 10^3/uL (0.0-0.7); Absolute Lymphocyte Count 1.36 10^3/uL (1.2-3.4); Absolute Monocyte Count 0.43 10^3/uL (0.1-0.8); Absolute Neutrophil Count 3.34 10^3/uL (1.2-6.7); Basophils % 0.6; Eosinophils % 18.3; Immature Grans % 0.3; Lymphocytes % 21.4; MCH 33.5 pg (27.0-33.0); MCHC 32.5 % (32.0-36.0); MCV 103.1 fL (80-95); MPV 9.2 fL (8.0-11.0); Monocytes % 6.8; Neutrophils % 52.6; Nucleated RBC 0 %; Platelet Count 183 10^3/uL (130-400); RBC 3.88 10^6/uL (4.36-5.78); RDW 13.3 % (11.8-14.1); RDW-SD 51.1 fL; WBC 6.35 10^3/uL (4.4-10.8)
[2020-07-26 08:53] LABS: ALT 14 U/L (16-63); AST 14 U/L (15-37); Albumin 3.5 g/dL (3.4-5.0); Alkaline Phosphatase 102 U/L (46-116); BUN 20 mg/dL (7-18); Bilirubin, Total 0.4 mg/dL (0.2-1.0); CREATININE 1.79 mg/dL (0.70-1.30); Calcium 9.3 mg/dL (8.5-10.1); Chloride 105 mmol/L (98-107); Estimated GFR 36.82 (mL/min/1.73m2); FREE T4 0.97 ng/dL (0.76-1.46); Glucose 97 mg/dL (74-106); Potassium 4.1 mmol/L (3.5-5.1); Sodium 138 mmol/L (136-145); TSH 1.25 uIU/mL (0.36-3.74); Total Protein 6.9 g/dL (6.4-8.2)
[2020-08-09] MEDS: Normal Saline Flush 10 ML SYR IVP (08:13)
[2020-08-09 08:23] LABS: Abs Immature Grans 0.02 10^3/uL (0.0-0.06); Absolute Basophil Count 0.05 10^3/uL (0.0-0.2); Absolute Eosinophil Count 0.78 10^3/uL (0.0-0.7); Absolute Lymphocyte Count 1.41 10^3/uL (1.2-3.4); Absolute Monocyte Count 0.47 10^3/uL (0.1-0.8); Absolute Neutrophil Count 3.57 10^3/uL (1.2-6.7); Basophils % 0.8; Eosinophils % 12.4; HCT 40.9 % (40.0-50.0); HGB 13.4 g/dL (13.5-17.5); Immature Grans % 0.3; Lymphocytes % 22.4; MCH 32.3 pg (27.0-33.0); MCHC 32.8 % (32.0-36.0); MCV 98.6 fL (80-95); MPV 9.5 fL (8.0-11.0); Monocytes % 7.5; Neutrophils % 56.6; Nucleated RBC 0 %; Platelet Count 163 10^3/uL (130-400); RBC 4.15 10^6/uL (4.36-5.78); RDW 12.9 % (11.8-14.1); RDW-SD 46.3 fL
[2020-08-09 08:45] LABS: ALT 17 U/L (16-63); AST 18 U/L (15-37); Albumin 3.5 g/dL (3.4-5.0); Alkaline Phosphatase 96 U/L (46-116); BUN 23 mg/dL (7-18); Bilirubin, Total 0.2 mg/dL (0.2-1.0); Calcium 9.5 mg/dL (8.5-10.1); Chloride 105 mmol/L (98-107); Estimated GFR 39.07 (mL/min/1.73m2); FREE T4 0.89 ng/dL (0.76-1.46); Glucose 96 mg/dL (74-106); Potassium 4.3 mmol/L (3.5-5.1); Sodium 137 mmol/L (136-145)
== END 2020-08-11 23:59 | disposition home or self-care (01) ==
LOC: INF 02:48
PROVIDERS: PCP Nurse Practitioner; Visit Provider Internal Medicine
DX: C79.10 Secondary malignant neoplasm of unspecified urinary organs (principal); Z79.899 Other long term (current) drug therapy; Z51.11 Encounter for antineoplastic chemotherapy
CPT/HCPCS: 36591; 80053; 84439; 84443; 85025

== ENCOUNTER 2020-09-06 02:57 | Outpatient (RCR) | payer MEDICARE, SELFPAY ==
[2020-08-23] MEDS: Normal Saline Flush 10 ML SYR IVP (12:49)
[2020-08-23 12:58] LABS: Abs Immature Grans 0.02 10^3/uL (0.0-0.06); Absolute Basophil Count 0.04 10^3/uL (0.0-0.2); Absolute Eosinophil Count 0.35 10^3/uL (0.0-0.7); Absolute Lymphocyte Count 1.34 10^3/uL (1.2-3.4); Absolute Monocyte Count 0.43 10^3/uL (0.1-0.8); Absolute Neutrophil Count 4.19 10^3/uL (1.2-6.7); Basophils % 0.6; Eosinophils % 5.5; HCT 43.9 % (40.0-50.0); HGB 14.4 g/dL (13.5-17.5); Immature Grans % 0.3; MCH 31.9 pg (27.0-33.0); MCHC 32.8 % (32.0-36.0); MCV 97.1 fL (80-95); Monocytes % 6.8; Neutrophils % 65.8; Nucleated RBC 0 %; Platelet Count 197 10^3/uL (130-400); RBC 4.52 10^6/uL (4.36-5.78); RDW 12.9 % (11.8-14.1); RDW-SD 46.6 fL; WBC 6.37 10^3/uL (4.4-10.8)
[2020-08-23 13:29] LABS: ALT 18 U/L (16-63); AST 16 U/L (15-37); Albumin 3.7 g/dL (3.4-5.0); Alkaline Phosphatase 99 U/L (46-116); Anion Gap 6.7 mmol/L (3-11); BUN 26 mg/dL (7-18); Bilirubin, Total 0.4 mg/dL (0.2-1.0); CO2 29.3 mmol/L (21.0-32.0); Calcium 9.7 mg/dL (8.5-10.1); Chloride 102 mmol/L (98-107); Estimated GFR 34.37 (mL/min/1.73m2); Glucose 110 mg/dL (74-106); Potassium 4.6 mmol/L (3.5-5.1); Sodium 138 mmol/L (136-145); TSH 1.07 uIU/mL (0.36-3.74); Total Protein 7.5 g/dL (6.4-8.2)
[2020-09-06] MEDS: Normal Saline Flush 10 ML SYR IVP (13:00)
[2020-09-06 13:17] LABS: Abs Immature Grans 0.02 10^3/uL (0.0-0.06); Absolute Basophil Count 0.03 10^3/uL (0.0-0.2); Absolute Eosinophil Count 0.25 10^3/uL (0.0-0.7); Absolute Monocyte Count 0.46 10^3/uL (0.1-0.8); Basophils % 0.5; Eosinophils % 3.9; HCT 43.6 % (40.0-50.0); HGB 14.3 g/dL (13.5-17.5); Immature Grans % 0.3; MCH 31.4 pg (27.0-33.0); MCHC 32.8 % (32.0-36.0); MCV 95.6 fL (80-95); MPV 8.9 fL (8.0-11.0); Monocytes % 7.2; Neutrophils % 66.1; Nucleated RBC 0 %; Platelet Count 194 10^3/uL (130-400); RBC 4.56 10^6/uL (4.36-5.78); RDW 12.4 % (11.8-14.1); RDW-SD 43.9 fL; WBC 6.36 10^3/uL (4.4-10.8)
[2020-09-06 13:42] LABS: ALT 19 U/L (16-63); AST 15 U/L (15-37); Albumin 3.6 g/dL (3.4-5.0); Alkaline Phosphatase 91 U/L (46-116); Anion Gap 5.3 mmol/L (3-11); BUN 25 mg/dL (7-18); Bilirubin, Total 0.4 mg/dL (0.2-1.0); CO2 25.7 mmol/L (21.0-32.0); CREATININE 1.65 mg/dL (0.70-1.30); Calcium 9.5 mg/dL (8.5-10.1); Chloride 102 mmol/L (98-107); Estimated GFR 40.44 (mL/min/1.73m2); FREE T4 0.95 ng/dL (0.76-1.46); Glucose 110 mg/dL (74-106); Magnesium 1.7 mg/dL (1.8-2.4); Potassium 4.3 mmol/L (3.5-5.1); Sodium 133 mmol/L (136-145); TSH 0.94 uIU/mL (0.36-3.74); Total Protein 7.1 g/dL (6.4-8.2)
== END 2020-09-11 23:59 | disposition home or self-care (01) ==
LOC: INF 02:57
PROVIDERS: PCP Nurse Practitioner; Visit Provider Internal Medicine
DX: Z79.899 Other long term (current) drug therapy (principal); Z51.11 Encounter for antineoplastic chemotherapy; C79.10 Secondary malignant neoplasm of unspecified urinary organs; Z45.2 Encounter for adjustment and management of vascular access device
CPT/HCPCS: 36591; 80053; 83735; 84439; 84443; 85025

== ENCOUNTER 2020-10-04 01:50 | Outpatient (RCR) | payer MEDICARE, SELFPAY ==
[2020-09-20] MEDS: Normal Saline Flush 10 ML SYR IVP (13:10)
[2020-09-20 13:34] LABS: Abs Immature Grans 0.01 10^3/uL (0.0-0.06); Absolute Basophil Count 0.04 10^3/uL (0.0-0.2); Absolute Eosinophil Count 0.29 10^3/uL (0.0-0.7); Absolute Lymphocyte Count 1.58 10^3/uL (1.2-3.4); Basophils % 0.6; Eosinophils % 4.7; HCT 43.7 % (40.0-50.0); HGB 14.1 g/dL (13.5-17.5); Immature Grans % 0.2; Lymphocytes % 25.4; MCH 30.3 pg (27.0-33.0); MCHC 32.3 % (32.0-36.0); MCV 93.8 fL (80-95); Neutrophils % 61.1; Nucleated RBC 0 %; Platelet Count 219 10^3/uL (130-400); RBC 4.66 10^6/uL (4.36-5.78); RDW 12.4 % (11.8-14.1); RDW-SD 43.2 fL; WBC 6.22 10^3/uL (4.4-10.8)
[2020-09-20 13:46] LABS: ALT 19 U/L (16-63); AST 16 U/L (15-37); Albumin 3.6 g/dL (3.4-5.0); Alkaline Phosphatase 96 U/L (46-116); Anion Gap 7.3 mmol/L (3-11); BUN 21 mg/dL (7-18); Bilirubin, Total 0.3 mg/dL (0.2-1.0); CO2 26.7 mmol/L (21.0-32.0); CREATININE 1.6 mg/dL (0.70-1.30); Calcium 9.3 mg/dL (8.5-10.1); Chloride 103 mmol/L (98-107); FREE T4 0.92 ng/dL (0.76-1.46); Glucose 103 mg/dL (74-106); Potassium 4.4 mmol/L (3.5-5.1); Sodium 137 mmol/L (136-145); TSH 1.49 uIU/mL (0.36-3.74); Total Protein 7.3 g/dL (6.4-8.2)
[2020-10-04] MEDS: Normal Saline Flush 10 ML SYR IVP (08:43)
[2020-10-04 09:00] LABS: Abs Immature Grans 0.02 10^3/uL (0.0-0.06); Absolute Basophil Count 0.04 10^3/uL (0.0-0.2); Absolute Eosinophil Count 0.37 10^3/uL (0.0-0.7); Absolute Lymphocyte Count 1.27 10^3/uL (1.2-3.4); Absolute Monocyte Count 0.44 10^3/uL (0.1-0.8); Absolute Neutrophil Count 3.23 10^3/uL (1.2-6.7); Basophils % 0.7; Eosinophils % 6.9; HCT 44.4 % (40.0-50.0); HGB 14.5 g/dL (13.5-17.5); Immature Grans % 0.4; Lymphocytes % 23.6; MCHC 32.7 % (32.0-36.0); MCV 91.7 fL (80-95); MPV 9.3 fL (8.0-11.0); Monocytes % 8.2; Neutrophils % 60.2; Nucleated RBC 0 %; Platelet Count 210 10^3/uL (130-400); RBC 4.84 10^6/uL (4.36-5.78); RDW 12.8 % (11.8-14.1); RDW-SD 43.3 fL; WBC 5.37 10^3/uL (4.4-10.8)
[2020-10-04 09:19] LABS: ALT 17 U/L (16-63); AST 13 U/L (15-37); Albumin 3.6 g/dL (3.4-5.0); Alkaline Phosphatase 93 U/L (46-116); Anion Gap 7.2 mmol/L (3-11); BUN 27 mg/dL (7-18); Bilirubin, Total 0.3 mg/dL (0.2-1.0); CO2 26.8 mmol/L (21.0-32.0); CREATININE 2.1 mg/dL (0.70-1.30); Calcium 9.6 mg/dL (8.5-10.1); Chloride 105 mmol/L (98-107); Estimated GFR 30.62 (mL/min/1.73m2); FREE T4 0.99 ng/dL (0.76-1.46); Glucose 108 mg/dL (74-106); Potassium 4.4 mmol/L (3.5-5.1); Sodium 139 mmol/L (136-145); TSH 1.47 uIU/mL (0.36-3.74); Total Protein 7.2 g/dL (6.4-8.2)
== END 2020-10-09 23:59 | disposition home or self-care (01) ==
LOC: INF 01:50
PROVIDERS: PCP Nurse Practitioner; Visit Provider Internal Medicine
DX: Z79.899 Other long term (current) drug therapy (principal); C79.10 Secondary malignant neoplasm of unspecified urinary organs; Z51.11 Encounter for antineoplastic chemotherapy; Z45.2 Encounter for adjustment and management of vascular access device
CPT/HCPCS: 36591; 80053; 84439; 84443; 85025

== ENCOUNTER 2020-11-08 03:03 | Outpatient (RCR) | payer MEDICARE, SELFPAY ==
[2020-10-18] MEDS: Normal Saline Flush 10 ML SYR IVP (07:19)
[2020-10-18 07:30] LABS: Abs Immature Grans 0.03 10^3/uL (0.0-0.06); Absolute Basophil Count 0.04 10^3/uL (0.0-0.2); Absolute Eosinophil Count 0.48 10^3/uL (0.0-0.7); Absolute Lymphocyte Count 1.34 10^3/uL (1.2-3.4); Absolute Monocyte Count 0.44 10^3/uL (0.1-0.8); Absolute Neutrophil Count 3.43 10^3/uL (1.2-6.7); Basophils % 0.7; Eosinophils % 8.3; HCT 44.6 % (40.0-50.0); HGB 14.3 g/dL (13.5-17.5); Immature Grans % 0.5; Lymphocytes % 23.3; MCH 29.4 pg (27.0-33.0); MCHC 32.1 % (32.0-36.0); MCV 91.6 fL (80-95); MPV 9.1 fL (8.0-11.0); Monocytes % 7.6; Neutrophils % 59.6; Nucleated RBC 0 %; Platelet Count 192 10^3/uL (130-400); RBC 4.87 10^6/uL (4.36-5.78); RDW-SD 43.5 fL; WBC 5.76 10^3/uL (4.4-10.8)
[2020-10-18 07:55] LABS: ALT 20 U/L (16-63); AST 16 U/L (15-37); Albumin 3.5 g/dL (3.4-5.0); Alkaline Phosphatase 96 U/L (46-116); Anion Gap 7.5 mmol/L (3-11); BUN 19 mg/dL (7-18); Bilirubin, Total 0.4 mg/dL (0.2-1.0); CO2 26.5 mmol/L (21.0-32.0); CREATININE 1.7 mg/dL (0.70-1.30); Calcium 9.5 mg/dL (8.5-10.1); Chloride 106 mmol/L (98-107); Estimated GFR 39.07 (mL/min/1.73m2); Glucose 95 mg/dL (74-106); Potassium 4.1 mmol/L (3.5-5.1); Sodium 140 mmol/L (136-145); Total Protein 7.2 g/dL (6.4-8.2)
[2020-10-25] MEDS: Normal Saline Flush 10 ML SYR IVP (13:34)
[2020-10-25 13:41] LABS: Abs Immature Grans 0.02 10^3/uL (0.0-0.06); Absolute Basophil Count 0.04 10^3/uL (0.0-0.2); Absolute Eosinophil Count 0.48 10^3/uL (0.0-0.7); Absolute Lymphocyte Count 1.41 10^3/uL (1.2-3.4); Absolute Monocyte Count 0.71 10^3/uL (0.1-0.8); Absolute Neutrophil Count 4.46 10^3/uL (1.2-6.7); Basophils % 0.6; Eosinophils % 6.7; HCT 44.4 % (40.0-50.0); HGB 14.2 g/dL (13.5-17.5); Immature Grans % 0.3; Lymphocytes % 19.8; MCH 29.1 pg (27.0-33.0); MPV 9.1 fL (8.0-11.0); Neutrophils % 62.6; Nucleated RBC 0 %; Platelet Count 216 10^3/uL (130-400); RBC 4.88 10^6/uL (4.36-5.78); RDW 13.1 % (11.8-14.1); RDW-SD 44.1 fL; WBC 7.12 10^3/uL (4.4-10.8)
[2020-10-25 13:59] LABS: ALT 30 U/L (16-63); AST 20 U/L (15-37); Albumin 3.4 g/dL (3.4-5.0); Alkaline Phosphatase 105 U/L (46-116); Anion Gap 5.7 mmol/L (3-11); BUN 26 mg/dL (7-18); Bilirubin, Total 0.4 mg/dL (0.2-1.0); CO2 28.3 mmol/L (21.0-32.0); CREATININE 1.9 mg/dL (0.70-1.30); Calcium 9.4 mg/dL (8.5-10.1); Chloride 104 mmol/L (98-107); Estimated GFR 34.37 (mL/min/1.73m2); Glucose 106 mg/dL (74-106); Potassium 4.8 mmol/L (3.5-5.1); Sodium 138 mmol/L (136-145); Total Protein 7.2 g/dL (6.4-8.2)
[2020-11-01] MEDS: Normal Saline Flush 10 ML SYR IVP (10:38)
[2020-11-01 10:41] LABS: Abs Immature Grans 0.02 10^3/uL (0.0-0.06); Absolute Basophil Count 0.04 10^3/uL (0.0-0.2); Absolute Eosinophil Count 0.74 10^3/uL (0.0-0.7); Absolute Monocyte Count 0.49 10^3/uL (0.1-0.8); Absolute Neutrophil Count 4.62 10^3/uL (1.2-6.7); Basophils % 0.6; Eosinophils % 10.3; HCT 44.8 % (40.0-50.0); HGB 14.3 g/dL (13.5-17.5); Immature Grans % 0.3; MCH 29.1 pg (27.0-33.0); MCHC 31.9 % (32.0-36.0); MCV 91.2 fL (80-95); MPV 9.3 fL (8.0-11.0); Monocytes % 6.8; Nucleated RBC 0 %; Platelet Count 222 10^3/uL (130-400); RBC 4.91 10^6/uL (4.36-5.78); RDW 13.5 % (11.8-14.1); WBC 7.21 10^3/uL (4.4-10.8)
[2020-11-01 11:02] LABS: ALT 25 U/L (16-63); AST 18 U/L (15-37); Albumin 3.4 g/dL (3.4-5.0); Alkaline Phosphatase 95 U/L (46-116); Anion Gap 9.6 mmol/L (3-11); BUN 21 mg/dL (7-18); Bilirubin, Total 0.4 mg/dL (0.2-1.0); CO2 26.4 mmol/L (21.0-32.0); CREATININE 1.9 mg/dL (0.70-1.30); Calcium 9.6 mg/dL (8.5-10.1); Chloride 103 mmol/L (98-107); Estimated GFR 34.37 (mL/min/1.73m2); FREE T4 0.84 ng/dL (0.76-1.46); Glucose 105 mg/dL (74-106); Potassium 4.3 mmol/L (3.5-5.1); Sodium 139 mmol/L (136-145)
[2020-11-08] MEDS: Normal Saline Flush 10 ML SYR IVP (09:42)
[2020-11-08 09:58] LABS: Abs Immature Grans 0.01 10^3/uL (0.0-0.06); Absolute Basophil Count 0.05 10^3/uL (0.0-0.2); Absolute Eosinophil Count 0.45 10^3/uL (0.0-0.7); Absolute Lymphocyte Count 1.23 10^3/uL (1.2-3.4); Absolute Monocyte Count 0.48 10^3/uL (0.1-0.8); Absolute Neutrophil Count 3.11 10^3/uL (1.2-6.7); Basophils % 0.9; Eosinophils % 8.4; HCT 44.9 % (40.0-50.0); HGB 14.4 g/dL (13.5-17.5); Immature Grans % 0.2; Lymphocytes % 23.1; MCH 29.1 pg (27.0-33.0); MCHC 32.1 % (32.0-36.0); MCV 90.9 fL (80-95); MPV 9.1 fL (8.0-11.0); Neutrophils % 58.4; Nucleated RBC 0 %; Platelet Count 233 10^3/uL (130-400); RBC 4.94 10^6/uL (4.36-5.78); RDW 14.2 % (11.8-14.1); RDW-SD 46.5 fL; WBC 5.33 10^3/uL (4.4-10.8)
[2020-11-08 10:24] LABS: ALT 24 U/L (16-63); AST 17 U/L (15-37); Albumin 3.4 g/dL (3.4-5.0); Alkaline Phosphatase 105 U/L (46-116); Anion Gap 8.1 mmol/L (3-11); BUN 21 mg/dL (7-18); Bilirubin, Total 0.5 mg/dL (0.2-1.0); CO2 27.9 mmol/L (21.0-32.0); CREATININE 1.9 mg/dL (0.70-1.30); Calcium 9.8 mg/dL (8.5-10.1); Chloride 104 mmol/L (98-107); Estimated GFR 34.37 (mL/min/1.73m2); FREE T4 0.98 ng/dL (0.76-1.46); Glucose 95 mg/dL (74-106); Potassium 4.4 mmol/L (3.5-5.1); Sodium 140 mmol/L (136-145); TSH 1.36 uIU/mL (0.36-3.74); Total Protein 7.2 g/dL (6.4-8.2)
== END 2020-11-09 23:59 | disposition home or self-care (01) ==
LOC: INF 03:03
PROVIDERS: PCP Nurse Practitioner; Visit Provider Internal Medicine
DX: C79.10 Secondary malignant neoplasm of unspecified urinary organs (principal); Z79.899 Other long term (current) drug therapy; Z45.2 Encounter for adjustment and management of vascular access device
CPT/HCPCS: 36591; 80053; 84439; 84443; 85025

== ENCOUNTER 2020-11-29 01:57 | Outpatient (RCR) | payer MEDICARE, SELFPAY ==
--- OUTSIDE RECORDS SUMMARY | 2020-11-10 13:25 | XMS_ITS ---
:1940 Author Care Team Providers Name Role Phone IZZY EVONNE Primary Care Provider [phone] [facility] Primary Care Provider [phone] [facility] OTHER [phone] Allergies Code Code System Name Reaction Severity Status Onset 7803 RxNorm Oxycodone ? ? Active ? Medications Name Status Start Date Stop Date ? ? acetaminophen Active ? Not available 650mg Q4h PRN aspirin Active ? Not available 81mg daily atorvastatin Active ? Not available 40mg at bedtime Centrum Silver Men Active ? Not available 1 tab daily diclofenac 1 % topical gel Active ? Not a vailable APPLY 2 GRAMS TO THE AFFECTED AREA(S) BY TOPICAL ROUTE 4 TIMES PER DAY Lipitor 20 mg tablet Completed ? 02/03/2018 Take 1 tablet every day by oral route. lisinopril Completed ? 02/03/2018 30mg daily losartan Active ? Not available 100mg daily multivitamin Completed ? 02/03/2018 1tab daily omeprazole Active ? Not available 20mg daily Prilosec Completed ? 02/03/2018 10mg daily Vitamin C Completed ? 02/03/2018 1 tab daily Vitamin D3 Active ? Not available 1000unit daily Problems Name Status Onset Date Source ? Hyperlipidemia Active 01/31/2018 ? Insomnia Active 01/31/2018 ? Obstructive Sleep Apnea Syndrome Active 01/31/2018 ? Hypertensive Disorder Active 01/31/2018 ? Malignant Neoplasm of Skin Active 09/02/2019 ? Carcinoma of Prostate Active 09/02/2019 ? Malignant Tumor of Kidney Active 09/02/2019 ? 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 Cataract Active 09/02/2019 ? Hearing Loss Active 09/02/2019 ? Cerebrovascular Disease Active 09/02/2019 ? Gastroesophageal Reflux Disease Active 09/02/2019 ? De Los Santos's Esophagus Active 09/02/2019 ? 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 Hiatal Hernia Active 09/02/2019 ? Hematuria Syndrome Active 09/02/2019 ? Arthritis Active 09/02/2019 ? Camptocormia Active 09/02/2019 ? History of Polyp of Colon Active 09/02/2019 ? Acute Stroke Active 09/02/2019 ? Procedures None recorded. Results Lab Results None recorded. Past Encounters 11/23/2019 Obstructive Sleep Apnea Syndrome Vickie Bashir NURSERY TEACHER: [address] [place] [phone], Ph. Social History Tobacco Smoking Status Never Smoker Vaccine List None recorded. Plan of Care Reminders Provider Appointments None ? ? recorded. Lab None ? ? recorded. Referral None ? ? recorded. Procedures None ? ? recorded. Surgeries None ? ? recorded. Imaging None ? ? recorded. Vitals 11/23/2019 08:45AM New Patient 45 Height Weight BMI 167.64 cm 79.38 kg 28.2 kg/m2 07/08/2018 08:00AM Office 30 Height Weight BMI Blood Pressure 168.91 cm 82.33 kg 28.9 kg/m2 138/78 mm[Hg] 05/22/2018 10:30AM New Patient 45 Height Weight BMI Blood Pressure 168.91 cm 82.19 kg 28.8 kg/m2 158/98 mm[Hg]
[2020-11-15] MEDS: Normal Saline Flush 10 ML SYR IVP (07:21)
[2020-11-15 07:40] LABS: Absolute Basophil Count 0.03 10^3/uL (0.0-0.2); Absolute Eosinophil Count 0.09 10^3/uL (0.0-0.7); Absolute Lymphocyte Count 1.05 10^3/uL (1.2-3.4); Absolute Monocyte Count 0.03 10^3/uL (0.1-0.8); Absolute Neutrophil Count 1.17 10^3/uL (1.2-6.7); Basophils % 1.3; Eosinophils % 3.8; HCT 43.2 % (40.0-50.0); HGB 13.7 g/dL (13.5-17.5); Lymphocytes % 44.3; MCH 28.8 pg (27.0-33.0); MCHC 31.7 % (32.0-36.0); MCV 90.9 fL (80-95); MPV 9.2 fL (8.0-11.0); Monocytes % 1.3; Neutrophils % 49.3; Nucleated RBC 0 %; Platelet Count 136 10^3/uL (130-400); RBC 4.75 10^6/uL (4.36-5.78); RDW 14.2 % (11.8-14.1); RDW-SD 47.5 fL; WBC 2.37 10^3/uL (4.4-10.8)
[2020-11-15 08:07] LABS: ALT 31 U/L (16-63); AST 22 U/L (15-37); Albumin 3.5 g/dL (3.4-5.0); Alkaline Phosphatase 122 U/L (46-116); Anion Gap 8.9 mmol/L (3-11); BUN 25 mg/dL (7-18); Bilirubin, Total 0.6 mg/dL (0.2-1.0); CO2 27.1 mmol/L (21.0-32.0); CREATININE 1.7 mg/dL (0.70-1.30); Calcium 10.1 mg/dL (8.5-10.1); Chloride 104 mmol/L (98-107); Estimated GFR 39.07 (mL/min/1.73m2); FREE T4 1.02 ng/dL (0.76-1.46); Glucose 94 mg/dL (74-106); Magnesium 1.8 mg/dL (1.8-2.4); Potassium 4.1 mmol/L (3.5-5.1); Sodium 140 mmol/L (136-145); Total Protein 7.3 g/dL (6.4-8.2)
[2020-11-24 13:23] LABS: Abs Immature Grans 0.13 10^3/uL (0.0-0.06); HCT 33.7 % (40.0-50.0); HGB 10.9 g/dL (13.5-17.5); Immature Grans % 3.6; MCH 29.3 pg (27.0-33.0); MCHC 32.3 % (32.0-36.0); MCV 90.6 fL (80-95); MPV 13.6 fL (8.0-11.0); Nucleated RBC 1 %; RBC 3.72 10^6/uL (4.36-5.78); RDW 14.1 % (11.8-14.1); RDW-SD 46.5 fL; WBC 3.66 10^3/uL (4.4-10.8)
[2020-11-24 13:30] LABS: ALT 32 U/L (16-63); AST 21 U/L (15-37); Albumin 3.2 g/dL (3.4-5.0); Alkaline Phosphatase 122 U/L (46-116); Anion Gap 9.9 mmol/L (3-11); BUN 29 mg/dL (7-18); Bilirubin, Total 0.3 mg/dL (0.2-1.0); CO2 25.1 mmol/L (21.0-32.0); Calcium 9.6 mg/dL (8.5-10.1); Chloride 104 mmol/L (98-107); Estimated GFR 32.39 (mL/min/1.73m2); Glucose 115 mg/dL (74-106); Potassium 4.7 mmol/L (3.5-5.1); Sodium 139 mmol/L (136-145); Total Protein 7.4 g/dL (6.4-8.2)
[2020-11-24 13:54] LABS: Platelet Count 11 10^3/uL (130-400)
[2020-11-24 13:55] LABS: Absolute Lymphocyte Count 0.77 10^3/uL (1.2-3.4); Absolute Monocyte Count 0.29 10^3/uL (0.1-0.8); Absolute Neutrophil Count 2.53 10^3/uL (1.2-6.7); Atypical Lymphocytes % 8; Bands % 7; Diff Comment Manual Differential
[2020-11-24 13:56] LABS: Macrocytosis 1+; Metamyelocytes % 1; Myelocytes % 1; Polychromasia Present
[2020-11-24] MEDS: Heparin 500 UNITS/5 ML SYRINGE IV (14:02)
[2020-11-24] MEDS: Normal Saline Flush 10 ML SYR IVP (14:02)
[2020-11-29] MEDS: Normal Saline Flush 10 ML SYR IVP (08:49)
[2020-11-29 08:57] LABS: Abs Immature Grans 0.35 10^3/uL (0.0-0.06); Absolute Basophil Count 0.04 10^3/uL (0.0-0.2); Absolute Eosinophil Count 0.04 10^3/uL (0.0-0.7); Absolute Lymphocyte Count 1.18 10^3/uL (1.2-3.4); Absolute Monocyte Count 1.28 10^3/uL (0.1-0.8); Absolute Neutrophil Count 6.19 10^3/uL (1.2-6.7); Basophils % 0.4; Eosinophils % 0.4; HCT 34.2 % (40.0-50.0); HGB 11.1 g/dL (13.5-17.5); Immature Grans % 3.9; MCH 29.8 pg (27.0-33.0); MCHC 32.5 % (32.0-36.0); MCV 91.9 fL (80-95); MPV 10.2 fL (8.0-11.0); Monocytes % 14.1; Neutrophils % 68.2; Nucleated RBC 0 %; Platelet Count 137 10^3/uL (130-400); RBC 3.72 10^6/uL (4.36-5.78); RDW 15.3 % (11.8-14.1); RDW-SD 48.5 fL; WBC 9.08 10^3/uL (4.4-10.8)
[2020-11-29 09:23] LABS: ALT 37 U/L (16-63); AST 24 U/L (15-37); Alkaline Phosphatase 147 U/L (46-116); Anion Gap 10.3 mmol/L (3-11); BUN 17 mg/dL (7-18); Bilirubin, Total 0.2 mg/dL (0.2-1.0); CO2 26.7 mmol/L (21.0-32.0); CREATININE 1.9 mg/dL (0.70-1.30); Calcium 9.9 mg/dL (8.5-10.1); Chloride 104 mmol/L (98-107); Estimated GFR 34.37 (mL/min/1.73m2); Glucose 106 mg/dL (74-106); Magnesium 1.8 mg/dL (1.8-2.4); Potassium 4.2 mmol/L (3.5-5.1); Sodium 141 mmol/L (136-145); TSH 1.31 uIU/mL (0.36-3.74); Total Protein 7.2 g/dL (6.4-8.2)
[2020-11-29 10:00] LABS: FREE T4 1.12 ng/dL (0.76-1.46)
== END 2020-12-09 23:59 | disposition home or self-care (01) ==
LOC: INF 01:57
PROVIDERS: PCP Nurse Practitioner; Visit Provider Internal Medicine
DX: C79.10 Secondary malignant neoplasm of unspecified urinary organs (principal); Z79.899 Other long term (current) drug therapy; Z45.2 Encounter for adjustment and management of vascular access device
CPT/HCPCS: 36591; 80053; 83735; 84439; 84443; 85025

== ENCOUNTER 2021-04-25 10:42 | Emergency (ER) | payer MEDICARE, SELFPAY ==
[2021-04-25] VITALS (38 sets, daily range): BP systolic 100–153; BP diastolic 68–100; PULSE 82–127; RESP 12–27; TEMP 36.4–36.8; O2SAT 93–98
--- NOTE | 2021-04-25 10:41 | ED.GENADUL_ITS ---
Discharge Plan Disposition Patient Disposition: HOME Condition: Stable Discharge Details Clinical Impression: COVID-19, Weakness, Cough Primary Care Provider: Crista Tom ED Provider: Lucero Bright Home Meds and New Rx's Prescriptions: New codeine-guaifenesin 10-100 mg/5 mL liquid 10 ml PO Q6H PRN (Reason: cough) Qty: 80 RF: 0 Continued acetaminophen [Pain Reliever Extra Strength] 500 mg tablet 1,000 mg PO BID Qty: 1 RF: 0 cholecalciferol (vitamin D3) 1,000 UNIT capsule 1,000 unit PO DAILY RF: 0 omeprazole magnesium [Prilosec OTC] 20 MG tablet,delayed release (DR/EC) 20 mg PO DAILY RF: 0 aspirin [Aspir-Low] 81 MG tablet,delayed release (DR/EC) 81 mg PO DAILY Qty: 12 RF: 0 losartan 100 MG tablet 100 mg PO DAILY Qty: 90 RF: 3 oxycodone 5 mg tablet 2.5 - 5 mg PO Q8H MDD 3 tabs PRN (Reason: pain) Qty: 10 RF: 0 Discharge Instructions Instructions: Weakness (ED), Acute Cough (ED), COVID-19 (Coronavirus Disease 20 19) (ED) Additional Instructions: Drink plenty of fluids and get plenty of rest. Alternate tylenol and motrin as needed and directed for pain. A prescription for Robitussin with codeine cough medication has been sent electronically to your pharmacy. Take this cough medication as needed and directed for coughing. Call your primary care doctor tomorrow to schedule a follow-up appointment for reevaluation within the next week. Return immediately to the emergency department if you develop any worsening or new concerning symptoms. Discharge Data Discharge Date/Time-TO BE ENTERED AT DEPARTURE: 04/25/21 16:30 Discharge Physician: Lucero Bright Medical Decision Making 81yo M w/ a h/o metastatic urothelial carcinoma, Graves' disease, FADI, hyperlipidemia, hypertension, De Los Santos's esophagus, GERD presents for generalized weakness, fatigue, dry cough and an episode of shaking this morning. He states this is not consistent with seizure-like activity. He denies any pain at this time. EKG notes a rate of 117, sinus, RBBBl, no STEMI, nondiagnostic. He has no focal deficits on exam. He appears comfortable and nontoxic. His heart rate is in the 110s but with normal oxygen saturation on room air. Differential diagnosis includes Covid, dehydration, viral illness, UTI, p neumonia. Will place an IV, screening labs, urinalysis, chest x-ray and give fluids and reassess. Labs and imaging reviewed. COVID PCR +. White blood cell count 8. Hemoglobin 15. Creatinine 2.2, increased slightly from his baseline. Troponin negative. Urinalysis negative for infection but with high specific gravity. Chest x-ray negative. Patient reassessed and he feels better. He ambulated around the room several times with no complaint of shortness of breath and appears in no acute distress. His vitals have remained within normal limits. Case discussed at length with patient's daughter Megan who discussed with his home health nurse Gely per pt request. Patient states he feels comfortable with discharge to home. As he has remained hemodynamically stable, is in no respiratory distress with normal oxygen saturation or complaint of shortness of breath, and not requiring any supplemental oxygen or IV medication at this time, I think this is a reasonable plan at this time. Disposition decision made weighing the risks and benefits of hospitalization versus outpatient treatment, the risk for further decompensation, and the patient's wishes. Per discussion with patient, patient's daughter Megan and home health nurse Gely, they are in agreement with plan for monoclonal antibody infusion. This was discussed with Marielena Blandon, and there is no outpatient availability this week. She recommends ordering this treatment here in the ED. This was ordered through pharmacy which was administered here in the ED which pt tolerated well. Discussed with patient and daughter that it is advisable that patient follow-up with his PCP within the next few days. Usual and customary return precautions given prior to discharge. Medical Records Medical records reviewed: Yes I reviewed the patient's medical records. Imaging Data Radiologic Study: Radiologist's impression: XR PORTABLE CHEST AP CLINICAL HISTORY: cough, sob, r/o acute disease TECHNIQUE: 2D digital imaging was performed. COMPARISON: CR XR CHEST 2V PA LATERAL from 02/02/2020 FINDINGS: LUNGS: Mild apical scarring. No consolidation.. No pleural abnormality seen. HEART: Normal. A port is again noted over the right upper chest with the tip in the junction of the SVC and right atrium. MEDIASTINUM: Normal. BONES: Unremarkable. IMPRESSION: No acute pulmonary findings. Lab Data Lab results reviewed: Yes I reviewed the patient's lab results. Labs: Laboratory Tests Range/Units 04/25/21 04/25/21 04/25/21 10:30 10:30 10:30 WBC (4.4-10.8) 10^3/uL 8.05 RBC (4.36-5.78) 10^6/uL 5.27 Hgb (13.5-17.5) g/dL 15.7 Hct (40.0-50.0) % 49.3 MCV (80-95) fL 93.5 MCH (27.0-33.0) pg 29.8 MCHC (32.0-36.0) % 31.8 L RDW (11.8-14.1) % 15.3 H Plt Count (130-400) 10^3/uL 239 MPV (8.0-11.0) fL 9.7 Immature Gran % 0.2 Neutrophils % 73.5 Lymphocytes % 13.5 Monocytes % 11.3 Eosinophils % 1.1 Basophils % 0.4 Nucleated RBC % % 0 Absolute Neutrophils (1.2-6.7) 10^3/uL 5.91 Absolute Lymphocytes (1.2-3.4) 10^3/uL 1.09 L Absolute Monocytes (0.1-0.8) 10^3/uL 0.91 H Absolute Eosinophils (0.0-0.7) 10^3/uL 0.09 Absolute Basophils (0.0-0.2) 10^3/uL 0.03 Sodium (136-145) mmol/L 138 Potassium (3.5-5.1) mmol/L 4.1 Chloride (98-107) mmol/L 102 Carbon Dioxide (21.0-32.0) mmol/L 23.3 Anion Gap (3-11) mmol/L 12.7 H BUN (7-18) mg/dL 19 H Creatinine (0.70-1.30) mg/dL 2.2 H Estimated GFR/1.73 m2 (mL/min/1.73m2) 28.94 Glucose (74-106) mg/dL 112 H Calcium (8.5-10.1) mg/dL 10.5 H Magnesium (1.8-2.4) mg/dL 1.9 Total Bilirubin (0.2-1.0) mg/dL 0.5 AST (15-37) U/L 16 ALT (16-63) U/L 20 Alkaline Phosphatase (46-116) U/L 181 H Troponin I (<0.06) ng/mL < 0.05 Total Protein (6.4-8.2) g/dL 8.6 H Albumin (3.4-5.0) g/dL 4.2 Urine Color (Yellow) Urine Clarity (Clear) Urine pH (5-8) Ur Specific [place] (1.005-1.025) Urine Protein (Negative) mg/dL Urine Ketones (Negative) mg/dL Urine Blood (Negative) Urine Nitrite (Negative) Urine Bilirubin (Negative) Urine Urobilinogen (Up TO 0.2) EU/dL Ur Leukocyte Esterase (Negative) Urine RBC (0-2) HPF Urine WBC (0-5) HPF Ur Epithelial Cells (Negative) HPF Urine Crystals (Negative) HPF Urine Bacteria (Negative) HPF Urine Casts (Negative) LPF Urine Mucus (Negative) Urine Other (Negative) Ur Culture Indicated? Urine Glucose (Negative) mg/dL COVID-19 Source SARS-CoV-2 (PCR) (Negative) Range/Units 04/25/21 04/25/21 11:30 11:30 WBC (4.4-10.8) 10^3/uL RBC (4.36-5.78) 10^6/uL Hgb (13.5-17.5) g/dL Hct (40.0-50.0) % MCV (80-95) fL MCH (27.0-33.0) pg MCHC (32.0-36.0) % RDW (11.8-14.1) % Plt Count (130-400) 10^3/uL MPV (8.0-11.0) fL Immature Gran % Neutrophils % Lymphocytes % Monocytes % Eosinophils % Basophils % Nucleated RBC % % Absolute Neutrophils (1.2-6.7) 10^3/uL Absolute Lymphocytes (1.2-3.4) 10^3/uL Absolute Monocytes (0.1-0.8) 10^3/uL Absolute Eosinophils (0.0-0.7) 10^3/uL Absolute Basophils (0.0-0.2) 10^3/uL Sodium (136-145) mmol/L Potassium (3.5-5.1) mmol/L Chloride (98-107) mmol/L Carbon Dioxide (21.0-32.0) mmol/L Anion Gap (3-11) mmol/L BUN (7-18) mg/dL Creatinine (0.70-1.30) mg/dL Estimated GFR/1.73 m2 (mL/min/1.73m2) Glucose (74-106) mg/dL Calcium (8.5-10.1) mg/dL Magnesium (1.8-2.4) mg/dL Total Bilirubin (0.2-1.0) mg/dL AST (15-37) U/L ALT (16-63) U/L Alkaline Phosphatase (46-116) U/L Troponin I (<0.06) ng/mL Total Protein (6.4-8.2) g/dL Albumin (3.4-5.0) g/dL Urine Color (Yellow) Yellow Urine Clarity (Clear) Clear Urine pH (5-8) 5.5 Ur Specific [place] (1.005-1.025) >= 1.030 H Urine Protein (Negative) mg/dL 100 H Urine Ketones (Negative) mg/dL Negative Urine Blood (Negative) Trace-lysed H Urine Nitrite (Negative) Negative Urine Bilirubin (Negative) Negative Urine Urobilinogen (Up TO 0.2) EU/dL 0.2 Ur Leukocyte Esterase (Negative) Negative Urine RBC (0-2) HPF 0-2 Urine WBC (0-5) HPF 0-2 Ur Epithelial Cells (Negative) HPF Negative Urine Crystals (Negative) HPF Negative Urine Bacteria (Negative) HPF Few Urine Casts (Negative) LPF 3-5 Hyaline Urine Mucus (Negative) Negative Urine Other (Negative) Negative Ur Culture Indicated? No Urine Glucose (Negative) mg/dL Negative COVID-19 Source Nasal/Nares SARS-CoV-2 (PCR) (Negative) POSITIVE A* ECG Data Attestation: I personally reviewed and interpreted this ECG (s) as follows: Interpretation: Rate of 117, sinus, right bundle branch block. No STEMI. HPI General Mode of arrival: EMS . Date/Time Provider Initiated Documentation: 04/25/21 11:05 . Limitations to Documentation: no limitations . Information obtained by: patient . HPI Narrative: Patient is an 81-year-old male who is DNR/DNI, history of hypertension, hyperlipidemia, GERD, sleep apnea, CVA, prostate cancer with prostatectomy presents from home for weakness, fatigue and dry cough for the past 3 days. Patient states he recently was exposed to at home health nurse with a positive Covid contact. Patient states he is fully vaccinated as of several months ago. He states today he had a 30-minute period where he was shaking but states it was not consistent with a seizure. He states he has had decreased appetite over the past few days. He denies any known fever, chest pain, abdominal pain, headache, vomiting, diarrhea or urinary symptoms Related Data Home Medications Medication Instructions Recorded Confirmed cholecalciferol (vitamin D3) 1,000 unit PO DAILY 01/27/13 04/25/21 omeprazole magnesium [Prilosec OTC] 20 mg PO DAILY tab 01/27/13 04/25/21 aspirin [Aspir-Low] 81 mg PO DAILY #12 tab-cap 02/16/14 04/25/21 losartan 100 mg PO DAILY #90 tab-cap 05/24/17 04/25/21 acetaminophen 500 mg tablet 1,000 mg PO BID #1 tab 02/03/21 04/25/21 oxycodone 5 mg tablet 2.5 - 5 mg PO Q8H PRN #10 tab MDD 02/24/21 04/25/21 3 tabs codeine-guaifenesin 10 ml PO Q6H PRN #80 ml 04/25/21 Previous Rx's Medication Instructions Recorded losartan 100 mg PO DAILY #90 tab-cap 05/24/17 acetaminophen 500 mg tablet 1,000 mg PO BID #1 tab 02/03/21 oxycodone 5 mg tablet 2.5 - 5 mg PO Q8H PRN #10 tab MDD 02/24/21 3 tabs codeine-guaifenesin 10 ml PO Q6H PRN #80 ml 04/25/21 Allergies Allergy/AdvReac Type Severity Reaction Status Date / Time oxycodone HCl [From Percocet] AdvReac Intermediate dizziness Verified 04/25/21 11:05 baclofen AdvReac altered Verified 04/25/21 11:05 mental status lisinopril AdvReac Verified 04/25/21 11:05 General DI: 3 Review of Systems All systems reviewed & are unremarkable except as noted in HPI and below Constitutional Constitutional: Reports as per HPI, Denies chills and Denies fever(s) Eyes Eyes: Denies blurry vision ENT Ears, Nose, Mouth, and Throat: Denies dizziness, Denies sore throat and Denies throat swelling Cardiovascular Cardiovascular: Denies chest pain and Denies dyspnea Respiratory Respiratory: Reports cough and Denies dyspnea Gastrointestinal Gastrointestinal: Denies abdominal pain, Denies diarrhea and Denies vomiting Genitourinary Genitourinary: Denies hematuria and Denies dysuria Musculoskeletal Musculoskeletal: Denies back pain and Denies numbness Integumentary/Breasts Skin/Breast: Denies lesions and Denies rash Neurologic Neurologic: Denies dizziness, Denies localized weakness and Denies numbness Allergic/Immunologic Allergic/Immunologic: Denies throat swelling [facility] Medical History Abnormal thyroid function test 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) Cataract Chemotherapy-induced neuropathy DNI (do not intubate) DNR (do not resuscitate) Essential hypertension Gastric motor function disorder GERD (gastroesophageal reflux disease) Hiatal hernia History of colon polyps Hyperlipidemia Hypertension Kidney malignancy Malignant neoplasm of skin (07/11/93) BASAL CELL CARCINOMA [place]'s disease of chest FADI (obstructive sleep apnea) uses CPAP POLST (Physician Orders for Life-Sustaining Treatment) Completed with YEN Salas 12/16/20, DNR/DNI Primary malignant neoplasm of prostate PROSTATECTOMY 1995 Renal insufficiency Right groin pain Right inguinal hernia per pt he does not have a hernia Sensorineural hearing loss, bilateral (02/11/14) Stroke 2001; sx unknown; on ASA ever since Tubular adenoma of colon (06/12/16) Surgical History Colonoscopy - MAC (04/21/13) DR. Ric VALENCIA EGD & Colonoscopy (06/12/16) H/O esophagogastroduodenoscopy (~11/12/18) History of kidney removal right nephrectomy Hx of cystoscopy Nasal septoplasty (~2001) Prostatectomy (~1995) S/P T&A (status post tonsillectomy and adenoidectomy) Family History Mother Heart disease Father Personal history of malignant neoplasm Prostate Heart disease Leukemia Prostate cancer Brother Personal history of malignant neoplasm Prostate Grandfather Stroke Grandmother Stroke Brother Personal history of malignant neoplasm Prostate Social History Smoking/Tobacco Use Status: Never Smoking risk assessment performed?: Yes Alcohol Intake: current Alcohol Intake frequency: a few times a week Alcohol type: beer and wine Drug use: Never Substance use type: does not use Household members: spouse Number of Children: 4 current occupation: Retired Do you feel safe at home: Yes Do you feel safe in your relationship?: Yes Additional Social history: with memory issues. Exam Const General: cooperative, healthy appearing and no acute distress HENMT Head: normal to inspection Face and sinus: normal facial exam Eyes General: appearance normal, both eyes and all related structures Pupils: PERRL EOM: EOM intact bilaterally Neck Neck: normal visual inspection and No submandibular swelling Lymphatic: no lymphadenopathy noted Chest Chest: normal inspection of the chest and no tenderness Resp Effort & Inspection: normal respiratory effort and able to speak in complete sentences Auscultation: clear to auscultation bilaterally Cardio Rate: regular rate Rhythm: regular rhythm GI Inspection: normal to inspection Palpation: soft, not firm, not rigid and nontender Auscultation: normal bowel sounds Male General Exam: Yes normal external exam Back/Spine/Pelvis Thoracic/Lumbar Spine: thoracic and lumbar spine normal to inspection Pelvis: no pain with anterior-posterior compression Skin General skin exam: no rashes or lesions noted Neuro General: patient alert, patient awake and patient oriented x3 Cognition: normal cognition Speech: speech normal Motor: muscle tone normal throughout Sensory Exam: no sensory deficits noted Extrem General: normal to inspection, full ROM, capillary refill normal, no calf tenderness bilaterally and no edema Psych Appearance: grossly normal Mental Status: mental status grossly normal Speech and Movement: speech and movement normal Affect: normal affect
--- NOTE | 2021-04-25 11:00 | RT.EKG_ITS ---
APPROVED REPORT Exam: Resting ECG Reason for Exam: weakness Patient Location: E HR:117 bpm ECG Measurements Heart Rate [address] 160 P 51 QRSd 123 QRS 70 QT 319 T 18 QTc 446 Conclusion Sinus tachycardia...rate> 99 Atrial premature complex...SV complex w/ short R-R interval Right bundle branch block...QRSd>120, terminal axis(90,270). Sinus. RBBB. No STEMI. I have reviewed and interpreted ECG and agree with software generated interpretation.
[2021-04-25 11:30] LABS: Abs Immature Grans 0.02 10^3/uL (0.0-0.06); Absolute Basophil Count 0.03 10^3/uL (0.0-0.2); Absolute Eosinophil Count 0.09 10^3/uL (0.0-0.7); Absolute Lymphocyte Count 1.09 10^3/uL (1.2-3.4); Absolute Monocyte Count 0.91 10^3/uL (0.1-0.8); Absolute Neutrophil Count 5.91 10^3/uL (1.2-6.7); Basophils % 0.4; Eosinophils % 1.1; HCT 49.3 % (40.0-50.0); HGB 15.7 g/dL (13.5-17.5); Immature Grans % 0.2; Lymphocytes % 13.5; MCH 29.8 pg (27.0-33.0); MCHC 31.8 % (32.0-36.0); MCV 93.5 fL (80-95); MPV 9.7 fL (8.0-11.0); Monocytes % 11.3; Neutrophils % 73.5; Nucleated RBC 0 %; Platelet Count 239 10^3/uL (130-400); RBC 5.27 10^6/uL (4.36-5.78); RDW 15.3 % (11.8-14.1); RDW-SD 53.1 fL; WBC 8.05 10^3/uL (4.4-10.8)
[2021-04-25 11:37] LABS: Magnesium 1.9 mg/dL (1.8-2.4)
[2021-04-25 11:43] LABS: ALT 20 U/L (16-63); AST 16 U/L (15-37); Albumin 4.2 g/dL (3.4-5.0); Alkaline Phosphatase 181 U/L (46-116); Anion Gap 12.7 mmol/L (3-11); BUN 19 mg/dL (7-18); Bilirubin, Total 0.5 mg/dL (0.2-1.0); CO2 23.3 mmol/L (21.0-32.0); CREATININE 2.2 mg/dL (0.70-1.30); Calcium 10.5 mg/dL (8.5-10.1); Chloride 102 mmol/L (98-107); Estimated GFR 28.94 (mL/min/1.73m2); Glucose 112 mg/dL (74-106); Potassium 4.1 mmol/L (3.5-5.1); Sodium 138 mmol/L (136-145); Total Protein 8.6 g/dL (6.4-8.2); Troponin I < 0.05 ng/mL (<0.06)
[2021-04-25 11:47] LABS: Bilirubin Negative (Negative); Blood Trace-lysed (Negative); Clarity Clear (Clear); Glucose Negative (Negative); Ketones Negative (Negative); Leukocyte Esterase Negative (Negative); Nitrite Negative (Negative); Source Nasal/Nares; Specific Gravity >= 1.030 (1.005-1.025); Urobilinogen 0.2 EU/dL (Up TO 0.2); pH 5.5 (5-8)
[2021-04-25] MEDS: guaiFENesin/CODEINE PHOSPHATE 10 ML CUP PO (11:51)
[2021-04-25] MEDS: Normal Saline 1,000 ML 1000 ML IV (11:52)
[2021-04-25 11:58] LABS: Bacteria Few HPF (Negative); C & S Indicated? No; Casts 3-5 Hyaline LPF (Negative); Crystals Negative HPF (Negative); Epithelial Cells Negative HPF (Negative); Mucus Negative (Negative); Other Cells Negative (Negative); RBC 0-2 HPF (0-2); WBC 0-2 HPF (0-5)
--- NOTE | 2021-04-25 12:35 | DI.RAD_ITS ---
Exam(s) XR PORTABLE CHEST AP EXAM: XR PORTABLE CHEST AP CLINICAL HISTORY: cough, sob, r/o acute disease TECHNIQUE: 2D digital imaging was performed. COMPARISON: CR XR CHEST 2V PA LATERAL from 02/02/2020 FINDINGS: LUNGS: Mild apical scarring. No consolidation.. No pleural abnormality seen. HEART: Normal. A port is again noted over the right upper chest with the tip in the junction of the SVC and right atrium. MEDIASTINUM: Normal. BONES: Unremarkable. IMPRESSION: No acute pulmonary findings. DATA REPOSITORY: RADIATION DOSE DELIVERED:
[2021-04-25 12:44] LABS: COVID-19 PCR POSITIVE (Negative)
--- NOTE | 2021-04-25 14:40 | NUR.NOTE ---
Provider order MAB antibody infusion. Pt vital signs on arrival at 1100 were as followed: T:36.4 BP:110/74 HR:116 SpO2: 95% RA RR: 18 Pt vitals obtained prior to administration of medication at 1432 as followed: T: 36.5 HR: 95 RR:18 BP: 134/70 SpO2: 96% RA Pt vitals obtained 5min after initiation of administration at 1437 as followed: T: 36.4 HR: 94 BP: 126/80 RR:18 SpO2 95% RA The pt endorsed not feelings of chest pain, SOB, itching, swelling. Awaiting infusion. Pt on monitor. Will reassess vital signs in ~30. Nursing Note:
--- NOTE | 2021-04-25 15:20 | NUR.NOTE ---
Pt tolerated infusion well. VS monitored and as followed post procedure: T:36.7 HR: 95 BP:177/72 RR:18 SpO2: 95% RA Now monitoring post infusion for 60min. Nursing Note:
== END 2021-04-25 16:30 | disposition home or self-care (01) ==
PROVIDERS: Emergency Provider Physician Assistant; PCP Nurse Practitioner
DX: U07.1 COVID-19 (principal); R53.1 Weakness
CPT/HCPCS: 80053; 87635; 93005; 96360; 96361; 96365; 99284; 71045; 81003; 81015; 83735; 84484; 85025; 93010